=== PATIENT | male | born 1970 | race Caucasian/White ===

== ENCOUNTER → 2018-04-03 | Outpatient (CLI) | payer OTHER ==
[2018-04-03 08:00] LABS: HGB 14.9 gm/dL (13.0-17.5); MCH 30.4 pg (25.0-35.0); MCHC 32.3 g/dL (31.0-37.0); MCV 93.9 fL (80.0-100.0); Mean Platelet Volume 6.8; Platelet Count 239 k/uL (150-450); RDW 13.1 % (11.5-15.5); WBC 6.4 k/uL (3.8-10.6)
[2018-04-03 10:12] LABS: Erythrocyte Sedimentation Rate 7 mm/hr (0-15)
--- NOTE | 2018-04-03 11:47 | NM ---
EXAMINATION TYPE: NM bone 3 phase DATE OF EXAM: 04/03/2018 COMPARISON: NONE HISTORY: Pain Triple phase bone scintigraphy was performed following the injection of 25.4 mCi Tc 99m MDP. Immedia te images and 3.5 hours post injection images acquired. FINDINGS: There is symmetric flow bilaterally. There is increased soft tissue uptake along the greater trochant er on the blood pool images. Delayed images demonstrate abnormal uptake near the tip of the distal margin of the prostheses and al ever the acetabulum. IMPRESSION: Abnormal uptake involving the right hip prostheses be associated with loosening or infection correlat ion with tagged WBC study recommended.
== END | disposition home or self-care (01) ==
LOC: RADNMMAIN 07:18
PROVIDERS: ATTEND Orthopaedic Surgery
DX: R93.7 Abnormal findings on diagnostic imaging of other parts of musculoskeletal system (principal); Z96.641 Presence of right artificial hip joint
CPT/HCPCS: 85652; 85027; 86141; 78315; 36415; A9503

== ENCOUNTER → 2018-07-03 | Outpatient (CLI) | payer OTHER ==
--- NOTE | 2018-07-03 09:19 | MR ---
EXAMINATION TYPE: MR lumbar spine wo con DATE OF EXAM: 07/03/2018 COMPARISON: None HISTORY: 47-year-old male Radiculopathy, lumbar region, numbness in legs TECHNIQUE: Multiplanar, multisequence images of the lumbar spine were acquired. Findings: Prominent metal hardware artifact suggesting underlying right hip total arthroplasty. Vertebral body heights are preserved and alignment is maintained. Mild heterogeneous marrow signal without suspicious bone marrow replacement. Scattered potential fatt y endplate changes are present anteriorly at L1-L2, L2-L3, L3-L4. Mild multilevel degenerative disc disease with variable mild disc desiccation and mild disc interspac e narrowing. There is a left paracentral and intraforaminal protrusion at L5-S1 with annular fissure. No large foc al disc herniation is seen. Facet arthropathy lower lumbar spine. Conus medullaris is normal. From T12 through L4 levels, no spinal canal or neuroforaminal stenosis. At L4-L5, there is facet arthropathy without significant canal or foraminal stenosis. At L5-S1, there is facet arthropathy with right paracentral/intraforaminal protrusion and annular fis sure this abuts the traversing right S1 nerve root, axial image 2 and sagittal image 9. No significan t neuroforaminal stenosis. No prevertebral or paravertebral soft tissue abnormality. IMPRESSION: 1. Mild multilevel degenerative disc disease. Some scattered associated Modic type II fatty endplate change. Additional facet arthropathy lower lumbar spine. 2. There is a small right paracentral/intraforaminal disc protrusion at L5-S1 with annular fissure. T his contacts the traversing right S1 nerve root. 3. No significant spinal canal or neuroforaminal stenosis.
== END | disposition home or self-care (01) ==
LOC: RADMRIMAIN 07:30
DX: M51.27 Other intervertebral disc displacement, lumbosacral region (principal); M51.36 Other intervertebral disc degeneration, lumbar region; M46.96 Unspecified inflammatory spondylopathy, lumbar region
CPT/HCPCS: 72148

== ENCOUNTER 2019-01-13 15:07 | Inpatient (IN) | payer OTHER ==
[2019-01-13] MEDS ORDERED: SODIUM CHLORIDE 0.9% 500 ML 500 ML IV STA (16:13)
--- NOTE | 2019-01-13 16:15 | ED ---
SOB HPI - General Source: patient, RN notes reviewed Mode of arrival: wheelchair Limitations: no limitations <Negro Woody - Last Filed: 01/13/19 16:53> <Pranay Verde - Last Filed: 01/13/19 18:19> - General Chief Complaint: Shortness of Breath Stated Complaint: SOB, cough Time Seen by Provider: 01/13/19 16:08 - History of Present Illness Initial Comments: This a 48-year-old male presents emergency Department with chief complaint of cough, shortness of breath. Patient states approximately one month but is diagnosed with pneumoniaand advised him steroids and breathing treatments. Patient states he followed up because he started increase in symptoms after coming off antibiotics. Patient states that he had an x-ray with PCP who told him it was worsening. He was sent emergency department at this time. Patient states he is a former smoker quit smoking approximately 3 years ago. He states he has right-sided chest pain which is pleuritic in nature. He states initially wasn't symptoms started he had a productive cough with some bloody sputum this is which he was reported pneumonia. Patient denies any current nausea, vomiting, diarrhea, constipation, fever, chills, night sweats. Patient states he has no left-sided chest pain. Patient did not take any current medications. (Negro Woody) - Related Data Home Medications Medication Instructions Recorded Confirmed Albuterol Sulfate [Proventil Hfa] 2 puff INHALATION QID 01/13/19 01/13/19 Simvastatin [Zocor] 20 mg PO DAILY 01/13/19 01/13/19 Allergies Allergy/AdvReac Type Severity Reaction Status Date / Time acetaminophen Allergy Vomiting Verified 01/13/19 16:48 [From Tylenol-Codeine #3] adhesive tape Allergy Rash/Hives Verified 01/13/19 16:48 codeine Allergy Vomiting Verified 01/13/19 16:48 [From Tylenol-Codeine #3] meperidine [From Demerol] Allergy Vomiting Verified 01/13/19 16:48 Review of Systems ROS Other: All systems not noted in ROS Statement are negative. <Negro Woody - Last Filed: 01/13/19 16:53> ROS Other: All systems not noted in ROS Statement are negative. <Pranay Verde - Last Filed: 01/13/19 18:19> ROS Statement: Those systems with pertinent positive or pertinent negative responses have been documented in the HPI. Past Medical History Past Medical History: Hyperlipidemia, Pneumonia Additional Past Medical History / Comment(s): right hip pain History of Any Multi-Drug Resistant Organisms: None Reported Past Surgical History: Joint Replacement Additional Past Surgical History / Comment(s): x2 right hip replacement, right hand surgery Past Psychological History: No Psychological Hx Reported Smoking Status: Former smoker Past Alcohol Use History: Daily Past Drug Use History: None Reported <Negro Woody - Last Filed: 01/13/19 16:53> General Exam Limitations: no limitations General appearance: alert, in no apparent distress Head exam: Present: atraumatic, normocephalic, normal inspection Eye exam: Present: normal appearance, PERRL, EOMI. Absent: scleral icterus, conjunctival injection, periorbital swelling ENT exam: Present: normal exam, normal oropharynx, mucous membranes moist, TM's normal bilaterally Neck exam: Present: normal inspection. Absent: tenderness, meningismus, lymphadenopathy Respiratory exam: Present: normal lung sounds bilaterally. Absent: respiratory distress, wheezes, rales, rhonchi, stridor Cardiovascular Exam: Present: regular rate, normal rhythm, normal heart sounds. Absent: systolic murmur, diastolic murmur, rubs, gallop, clicks GI/Abdominal exam: Present: soft, normal bowel sounds. Absent: distended, tend erness, guarding, rebound, rigid Back exam: Absent: CVA tenderness (R), CVA tenderness (L) Skin exam: Present: warm, dry, intact, normal color. Absent: rash <Negro Woody - Last Filed: 01/13/19 16:53> General appearance: alert, in no apparent distress Head exam: Present: atraumatic, normocephalic, normal inspection Eye exam: Present: normal appearance, PERRL, EOMI. Absent: scleral icterus, conjunctival injection, periorbital swelling ENT exam: Present: normal exam, mucous membranes moist Neck exam: Present: normal inspection. Absent: tenderness, meningismus, lymphadenopathy Respiratory exam: Present: normal lung sounds bilaterally. Absent: respiratory distress, wheezes, rales, rhonchi, stridor Cardiovascular Exam: Present: regular rate, normal rhythm, normal heart sounds. Absent: systolic murmur, diastolic murmur, rubs, gallop, clicks GI/Abdominal exam: Present: soft, normal bowel sounds. Absent: distended, tenderness, guarding, rebound, rigid Extremities exam: Present: normal inspection, full ROM, normal capillary refill. Absent: tenderness, pedal edema, joint swelling, calf tenderness Back exam: Present: normal inspection Neurological exam: Present: alert, oriented X3, CN II-XII intact Psychiatric exam: Present: normal affect, normal mood Skin exam: Present: warm, dry, intact, normal color. Absent: rash <Pranay Verde - Last Filed: 01/13/19 18:19> Course Vital Signs 01/13/19 01/13/19 15:18 16:51 Temperature 98.0 F Pulse Rate 95 73 Respiratory 18 18 Rate Blood Pressure 125/83 116/77 O2 Sat by Pulse 95 98 Oximetry Medical Decision Making - Lab Data Result diagrams: 01/13/19 16:09 01/13/19 16:09 <Negro Woody - Last Filed: 01/13/19 16:53> - Lab Data Result diagrams: 01/13/19 16:09 01/13/19 16:09 - Radiology Data Radiology results: report reviewed (CT angio chest shows lung mass w atelescatis ), image reviewed <Pranay Verde - Last Filed: 01/13/19 18:19> - Medical Decision Making 48 male to be admitted for failure of outpatient pneumonia, patient to be admitted for abx and monitoring of cardiopulmonary support (Pranay Verde) - Lab Data Lab Results 01/13/19 01/13/19 01/13/19 Range/Units 16:09 16:09 16:09 WBC 6.8 (3.8-10.6) k/uL RBC 4.92 (4.30-5.90) m/uL Hgb 15.3 (13.0-17.5) gm/dL Hct 45.8 (39.0-53.0) % MCV 93.0 (80.0-100.0) fL MCH 31.0 (25.0-35.0) pg MCHC 33.3 (31.0-37.0) g/dL RDW 12.4 (11.5-15.5) % Plt Count 232 (150-450) k/uL Neutrophils % 66 % Lymphocytes % 20 % Monocytes % 6 % Eosinophils % 6 % Basophils % 1 % Neutrophils # 4.5 (1.3-7.7) k/uL Lymphocytes # 1.4 (1.0-4.8) k/uL Monocytes # 0.4 (0-1.0) k/uL Eosinophils # 0.4 (0-0.7) k/uL Basophils # 0.0 (0-0.2) k/uL PT 9.3 (9.0-12.0) sec INR 0.8 (<1.2) APTT 24.3 (22.0-30.0) sec D-Dimer 1.75 H (<0.60) mg/L FEU Sodium 141 (137-145) mmol/L Potassium 4.0 (3.5-5.1) mmol/L Chloride 106 (98-107) mmol/L Carbon Dioxide 26 (22-30) mmol/L Anion Gap 9 mmol/L BUN 11 (9-20) mg/dL Creatinine 0.85 (0.66-1.25) mg/dL Est GFR (CKD-EPI)AfAm >90 (>60 ml/min/1.73 sqM) Est GFR (CKD-EPI)NonAf >90 (>60 ml/min/1.73 sqM) Glucose 94 (74-99) mg/dL Plasma Lactic Acid Nehemias (0.7-2.0) mmol/L Calcium 9.8 (8.4-10.2) mg/dL Total Bilirubin 0.5 (0.2-1.3) mg/dL AST 21 (17-59) U/L ALT 37 (21-72) U/L Alkaline Phosphatase 79 (38-126) U/L Troponin I (0.000-0.034) ng/mL NT-Pro-B Natriuret Pep pg/mL Total Protein 6.9 (6.3-8.2) g/dL Albumin 4.2 (3.5-5.0) g/dL 01/13/19 01/13/19 01/13/19 Range/Units 16:09 16:09 16:09 WBC (3.8-10.6) k/uL RBC (4.30-5.90) m/uL Hgb (13.0-17.5) gm/dL Hct (39.0-53.0) % MCV (80.0-100.0) fL MCH (25.0-35.0) pg MCHC (31.0-37.0) g/dL RDW (11.5-15.5) % Plt Count (150-450) k/uL Neutrophils % % Lymphocytes % % Monocytes % % Eosinophils % % Basophils % % Neutrophils # (1.3-7.7) k/uL Lymphocytes # (1.0-4.8) k/uL Monocytes # (0-1.0) k/uL Eosinophils # (0-0.7) k/uL Basophils # (0-0.2) k/uL PT (9.0-12.0) sec INR (<1.2) APTT (22.0-30.0) sec D-Dimer (<0.60) mg/L FEU Sodium (137-145) mmol/L Potassium (3.5-5.1) mmol/L Chloride (98-107) mmol/L Carbon Dioxide (22-30) mmol/L Anion Gap mmol/L BUN (9-20) mg/dL Creatinine (0.66-1.25) mg/dL Est GFR (CKD-EPI)AfAm (>60 ml/min/1.73 sqM) Est GFR (CKD-EPI)NonAf (>60 ml/min/1.73 sqM) Glucose (74-99) mg/dL Plasma Lactic Acid Nehemias 0.8 (0.7-2.0) mmol/L Calcium (8.4-10.2) mg/dL Total Bilirubin (0.2-1.3) mg/dL AST (17-59) U/L ALT (21-72) U/L Alkaline Phosphatase (38-126) U/L Troponin I <0.012 (0.000-0.034) ng/mL NT-Pro-B Natriuret Pep 30 pg/mL Total Protein (6.3-8.2) g/dL Albumin (3.5-5.0) g/dL - EKG Data EKG Comments: EKG performed at 16:02 normal sinus rhythm rate of 66 GA 136 QRS 96 QT status QTC 398/417 (Negro Woody) Disposition Time of Disposition: 16:53 <Negro Woody - Last Filed: 01/13/19 16:53> Is patient prescribed a controlled substance at d/c from ED?: No <Pranay Verde - Last Filed: 01/13/19 18:19> Clinical Impression: Pneumonia, Failure of outpatient treatment, Lung mass Disposition: ADMITTED IP TO THIS HOSP Condition: Fair Referrals: Juan José Reece DO [Primary Care Provider] - 1-2 days
[2019-01-13 16:27] LABS: Basophils % (A) 1 %; Eosinophils # (A) 0.4 k/uL (0-0.7); Eosinophils % (A) 6 %; HCT 45.8 % (39.0-53.0); HGB 15.3 gm/dL (13.0-17.5); Lymphocytes # (A) 1.4 k/uL (1.0-4.8); Lymphocytes % (A) 20 %; MCHC 33.3 g/dL (31.0-37.0); Mean Platelet Volume 6.6; Monocytes # (A) 0.4 k/uL (0-1.0); Monocytes % (A) 6 %; Neutrophils # (A) 4.5 k/uL (1.3-7.7); Neutrophils % (A) 66 %; Platelet Count 232 k/uL (150-450); RBC 4.92 m/uL (4.30-5.90); RDW 12.4 % (11.5-15.5); WBC 6.8 k/uL (3.8-10.6)
[2019-01-13 16:36] LABS: ALT 37 U/L (21-72); AST 21 U/L (17-59); Albumin 4.2 g/dL (3.5-5.0); Alkaline Phosphatase 79 U/L (38-126); Anion Gap 9 mmol/L; Blood Urea Nitrogen 11 mg/dL (9-20); Calcium 9.8 mg/dL (8.4-10.2); Carbon Dioxide 26 mmol/L (22-30); Chloride 106 mmol/L (98-107); Glucose 94 mg/dL (74-99); Sodium 141 mmol/L (137-145); Total Bilirubin 0.5 mg/dL (0.2-1.3); Total Protein 6.9 g/dL (6.3-8.2)
[2019-01-13] MEDS ORDERED: LEVOFLOXACIN 750MG-D5W PMX 750 MG in DEXTROSE/WATER 1 150ML.BAG IVPB STA (16:53)
[2019-01-13] MEDS ORDERED: PNEUMONIA PROTOCOL UTILIZED 1 EACH MISC PO PRN (16:53)
[2019-01-13 16:56] LABS: INR 0.8 (<1.2); Partial Thromboplastin Time 24.3 sec (22.0-30.0); Prothrombin Time 9.3 sec (9.0-12.0)
--- NOTE | 2019-01-13 16:59 | XR ---
EXAMINATION TYPE: XR chest 2V DATE OF EXAM: 01/13/2019 COMPARISON: None HISTORY: Cough short of breath TECHNIQUE: Frontal and lateral views of the chest are obtained. FINDINGS: There is some patchy atelectasis at the right lung base. There is minimal subsegmental ate lectasis left lower lobe. There is no heart failure. Heart size is normal. IMPRESSION: Right lower lobe patchy atelectasis. Normal heart.
[2019-01-13 17:13] LABS: D-Dimer 1.75 mg/L FEU (<0.60)
--- NOTE | 2019-01-13 18:06 | CT ---
EXAMINATION TYPE: CT angio chest DATE OF EXAM: 01/13/2019 5:39 PM COMPARISON: None HISTORY: difficulty breathing CT DLP: 300.4 mGycm Automated exposure control for dose reduction was used. CONTRAST: CTA scan of the thorax is performed with IV Contrast, patient injected with 100 mL of Isovue 300, pul monary embolism protocol. There are 3-D post processed images.. FINDINGS: Heart size is normal. There is linear moderate atelectasis in the lateral right lower lobe. There is masslike density at the right pulmonary hilum encasing the right mainstem bronchus and right lower lobe bronchus. This measures 7 x 3.5 cm. Thoracic aorta shows no aneurysm or dissection. There is normal contrast opacification of the pulmona ry arteries. I see no filling defect. There is no mediastinal adenopathy. The bony thorax is intact. IMPRESSION: NO EVIDENCE OF PULMONARY EMBOLISM. LARGE MASS INFERIOR AND POSTERIOR TO THE RIGHT PULMONARY HILUM CON SISTENT WITH THE TUMOR. THERE IS EXTENSIVE ATELECTASIS RIGHT LOWER LOBE.
[2019-01-13 19:54] VITALS: BMI 28.5
[2019-01-13] MEDS ORDERED: LORazepam 2 MG/ML INJ IV PRN ×3 (20:39)
[2019-01-13] MEDS ORDERED: THIAMINE 100 MG/ML 2 ML VIAL IM STA (20:39)
[2019-01-13] MEDS: ATORVASTATIN 10 MG TAB PO SCH (20:53)
[2019-01-13] MEDS: THIAMINE 100 MG TAB PO SCH (20:53)
[2019-01-13] MEDS: HEPARIN SODIUM,PORCINE 5,000 UNIT/ML 1 ML VIAL SQ SCH (20:54)
[2019-01-13] MEDS: IPRATROPIUM-ALBUTEROL 3 ML NEB INHALATION SCH (20:57)
[2019-01-13] MEDS: ALPRAZolam 0.25 MG TAB PO PRN (20:58)
[2019-01-13] MEDS: PIPERACILLIN-TAZOBACTAM 3.375 GM in SODIUM CHLORIDE 0.9% 100 ML IVPB SCH (23:40)
[2019-01-13] MEDS: HYDROcodone/APAP 5-325MG 1 EACH TAB PO PRN (23:43)
--- NOTE | 2019-01-14 03:35 | HP ---
HISTORY AND PHYSICAL CHIEF COMPLAINT: Shortness of breath and cough. HISTORY OF PRESENT ILLNESS: This 48-year-old gentleman with a past medical history of multiple medical issues including hypertension, hyperlipidemia, history of right hip pain, DJD, history of PTSD, history of Botox in 1999 with broken right being followed Dr. Juan José Reece in the outpatient setting was having problems pneumonia for the past one month. The patient has on and off shortness of breath and cough. The patient had received antibiotics. The chest x-ray was found to be worsening and the patient came to [facility] and was admitted for further evaluation. Patient also complaining of right sided chest pain. The patient also reports a weight loss. After admission, chest x-ray showed some right-sided opacities and CT scan of the chest was done. There was no evidence of pulmonary embolism, but large mass interior and posterior to the right pulmonary hilum consistent with possibly lung tumor with extensive atelectasis of the right lower lobe was also noted. The patient admitted for further evaluation and treatment. There is no history of fever, rigors. No history of headache, loss of consciousness or seizures. PAST MEDICAL HISTORY: Hyperlipidemia, recurrent pneumonia, right hip pain, history of PTSD. MEDICATIONS: Prior to admission home medications include: 1. Simvastatin 20 mg daily. 2. Albuterol q.i.d. ALLERGIES: TYLENOL FROM TYLENOL #3, ADHESIVE TAPE, CODEINE AND DEMEROL. FAMILY HISTORY: History of lung cancer in father, who was admitted here and history of lung cancer and brain cancer in the patient's father's brother. The patient and his father live in the same house. The patient used to work in a factory previously. SOCIAL HISTORY: Previous history of smoking. Patient quit about a few years ago. Smokes marijuana. Occasional alcohol intake. REVIEW OF SYSTEMS: ENT: No diminished vision. No diminished hearing. CARDIOVASCULAR: As mentioned earlier. RESPIRATORY: As mentioned earlier. GI no nausea or vomiting. no dysuria. Nervous System: Numbness and weakness. ALLERGY/IMMUNOLOGY: No asthma or hayfever. MUSCULOSKELETAL: As mentioned earlier. HEMATOLOGY/ONCOLOGY: As mentioned earlier. ENDOCRINE: No history of diabetes or hypothyroidism. CONSTITUTIONAL: As mentioned earlier. Dermatology: Negative. Rheumatology: Negative. Psychiatry: As mentioned earlier. PHYSICAL EXAMINATION: Alert and oriented times three. Pulse is 92, blood pressure 111/81, respiration 18, temperature 97.9, pulse ox 97% on room air. HEENT: Conjunctivae normal. Oral mucosa moist. NECK: No jugular venous distention. No carotid bruit. No lymph node enlargement. CARDIOVASCULAR: S1, S2 muffled. RESPIRATORY: Breath sounds diminished in the the bases. A few scattered rhonchi and crackles. Breath sounds are diminished in the bases. Both bases. ABDOMEN: Soft, nontender. No mass palpable. LEGS: No edema. No swelling. NERVOUS SYSTEM: Higher functions as mentioned earlier. Moves all 4 limbs. No focal motor or sensory deficits. Lymphatics: No lymph nodes palpable in the neck, axillae or groin. SKIN: No ulcer, rash or bleeding. JOINTS: No active arthropathy. LABS: CBC within normal limits and D-dimer is 1.7. CMP within normal limits. ASSESSMENT: 1. Possible right-sided lung cancer with postobstructive pneumonia and atelectasis. 2. Failure of outpatient treatment for pneumonia. 3. Possibly gram-negative postobstructive pneumonia. 4. Hyperlipidemia. 5. History of right hip pain, degenerative joint disease. History of PTSD. 1. History of nicotine dependence. 2. History of THC, history of EtOH. RECOMMENDATIONS AND DISCUSSION: This 48-year-old gentleman who presented with multiple medical problems at this time we will monitor the patient closely, continue the current medications, management and symptomatic treatment. Otherwise at this time I recommend broad-spectrum IV antibiotics. I would also recommend pulmonary consultation with Dr. Ortega for possible bronchoscopy and biopsy. DVT prophylaxis. Pain medications, symptomatic treatment. Resume the home medications. Guarded prognosis because of multiple complex medical issues. Further recommendations to follow. A copy of dictation being forwarded to Dr. Juan José Reece, who is the primary care physician. MMODL / IJN: [id number] / [facility]OS[facility]ITALMichell
[2019-01-14] MEDS: HEPARIN SODIUM,PORCINE 5,000 UNIT/ML 1 ML VIAL SQ SCH ×2 (07:49→20:37)
[2019-01-14] MEDS: ATORVASTATIN 10 MG TAB PO SCH (07:49)
[2019-01-14] MEDS: PIPERACILLIN-TAZOBACTAM 3.375 GM in SODIUM CHLORIDE 0.9% 100 ML IVPB SCH ×3 (07:49→23:40)
[2019-01-14] MEDS: THIAMINE 100 MG TAB PO SCH ×2 (07:49→16:04)
[2019-01-14] MEDS: HYDROcodone/APAP 5-325MG 1 EACH TAB PO PRN ×2 (07:49→14:02)
[2019-01-14] MEDS: PANTOPRAZOLE 40 MG TABLET PO SCH (07:49)
[2019-01-14] MEDS: IPRATROPIUM-ALBUTEROL 3 ML NEB INHALATION SCH ×5 (08:08→19:58)
--- NOTE | 2019-01-14 09:05 | XR ---
EXAMINATION TYPE: XR chest 2V DATE OF EXAM: 01/14/2019 COMPARISON: 01/13/2019 TECHNIQUE: PA and lateral views submitted. HISTORY: Cough, abnormal x-ray FINDINGS: Small right pleural effusion with basilar infiltrate is stable. No pneumothorax. No interstitial isauro a. Heart size normal. IMPRESSION: 1. Stable right-sided infiltrate and small effusion.
[2019-01-14 09:07] LABS: Basophils # (A) 0.1 k/uL (0-0.2); Basophils % (A) 1 %; Eosinophils # (A) 0.3 k/uL (0-0.7); Eosinophils % (A) 4 %; HCT 45.5 % (39.0-53.0); HGB 15.1 gm/dL (13.0-17.5); Lymphocytes # (A) 1.1 k/uL (1.0-4.8); Lymphocytes % (A) 15 %; MCHC 33.1 g/dL (31.0-37.0); MCV 93.9 fL (80.0-100.0); Mean Platelet Volume 6.5; Monocytes # (A) 0.4 k/uL (0-1.0); Monocytes % (A) 5 %; Neutrophils # (A) 5.5 k/uL (1.3-7.7); Neutrophils % (A) 74 %; Platelet Count 229 k/uL (150-450); RBC 4.85 m/uL (4.30-5.90); RDW 12.6 % (11.5-15.5); WBC 7.4 k/uL (3.8-10.6)
[2019-01-14 09:22] LABS: Anion Gap 8 mmol/L; Blood Urea Nitrogen 10 mg/dL (9-20); Calcium 9.5 mg/dL (8.4-10.2); Carbon Dioxide 26 mmol/L (22-30); Chloride 107 mmol/L (98-107); Glucose 133 mg/dL (74-99); Potassium 4.1 mmol/L (3.5-5.1); Sodium 141 mmol/L (137-145)
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
[2019-01-14] MEDS: LEVOFLOXACIN 750MG-D5W PMX 750 MG in DEXTROSE/WATER 1 150ML.BAG IVPB SCH (16:04)
[2019-01-14] MEDS: HYDROmorphone 0.5 MG/0.5 ML SYRINGE IVP PRN ×2 (16:23→20:43)
[2019-01-14] MEDS: methylPREDNISolone SOD SUCCI 40 MG/ML 1 ML VIAL IV SCH ×2 (17:46→23:41)
--- NOTE | 2019-01-14 23:04 | PN ---
PROGRESS NOTE DATE OF SERVICE: 01/14/2019 DATE OF SERVICE: This 48-year-old gentleman who was admitted with shortness of breath, cough, right- sided lung cancer with post obstructive pneumonia and atelectasis. Dr. Ortega is following the patient closely. CT scan was reviewed. The patient is complaining of chest pain at this time. Dr. Ortega is recommending a bronchoscopy and biopsy at this time. The patient is being closely monitored. Please note the patient also has family history of lung cancer. PAST MEDICAL HISTORY: Reviewed. REVIEW OF SYSTEMS: CARDIOVASCULAR: No angina. RESPIRATORY: As mentioned earlier. GI: No nausea. : As mentioned earlier. CURRENT MEDICATIONS: 1. [place] 5 mg every 6 hours p.r.n. 2. DuoNeb q.i.d. and p.r.n. 3. Xanax 0.5 t.i.d. 4. Lipitor 10 mg. 5. Heparin 5000 subcu b.i.d. 6. Dilaudid 0.5 mg every 4 hours p.r.n. 7. Levaquin. 8. Ativan. 9. Solu-Medrol 40 IV every 6 hours. 10.Protonix. 11.Zosyn 3.375 IV every 8. PHYSICAL EXAMINATION: Alert, oriented x3. Pulse is 89,blood pressure 120/66, respirations 16, temperature 97.9, pulse ox 94% on room air. HEENT: Conjunctivae normal. Oral mucosa moist. NECK: No jugular venous distention. No lymph node enlargement. CARDIOVASCULAR: S1 and S2 muffled. LUNGS: Breath sounds diminished at the bases. Few scattered rhonchi and expiratory wheezing and crackles. ABDOMEN: Soft, nontender. LEGS: No edema, no swelling. NERVOUS SYSTEM: No focal deficits. LABS: At this time show WBC 7.2, hemoglobin 15.1, glucose 133. ASSESSMENT: 1. Acute right-sided post obstructive pneumonia with atelectasis with possible right- sided lung cancer. 2. Failure of outpatient treatment for pneumonia. 3. Gram-negative or possibly pneumonia. 4. Hyperlipidemia. 5. History of right hip pain and DJD. 6. Right-sided chest pain. 7. History of PTSD. 8. History of nicotine dependence. 9. History of THC. 10.History of ETOH. RECOMMENDATIONS: Continue current medications and symptomatic treatment. At this time we will add Dilaudid p.r.n. basis. Otherwise, continue the antibiotics and bronchodilators. Closely follow with Dr. Ortega. Guarded prognosis. Further recommendations to follow. MMODL / IJN: [id number] /
[2019-01-15] MEDS: methylPREDNISolone SOD SUCCI 40 MG/ML 1 ML VIAL IV SCH ×4 (05:48→23:45)
[2019-01-15] MEDS: IPRATROPIUM-ALBUTEROL 3 ML NEB INHALATION SCH ×4 (07:13→21:10)
[2019-01-15] MEDS: ATORVASTATIN 10 MG TAB PO SCH (07:58)
[2019-01-15] MEDS: PIPERACILLIN-TAZOBACTAM 3.375 GM in SODIUM CHLORIDE 0.9% 100 ML IVPB SCH ×3 (07:58→23:46)
[2019-01-15] MEDS: HEPARIN SODIUM,PORCINE 5,000 UNIT/ML 1 ML VIAL SQ SCH ×2 (07:58→20:10)
[2019-01-15] MEDS: THIAMINE 100 MG TAB PO SCH ×2 (07:58→16:45)
[2019-01-15] MEDS: PANTOPRAZOLE 40 MG TABLET PO SCH (07:58)
[2019-01-15] MEDS: HYDROmorphone 0.5 MG/0.5 ML SYRINGE IVP PRN ×4 (07:59→20:10)
[2019-01-15 11:06] LABS: Basophils % (A) 0 %; Eosinophils % (A) 0 %; HCT 42.9 % (39.0-53.0); HGB 14.1 gm/dL (13.0-17.5); Lymphocytes # (A) 0.3 k/uL (1.0-4.8); Lymphocytes % (A) 3 %; MCH 30.7 pg (25.0-35.0); MCHC 32.9 g/dL (31.0-37.0); MCV 93.4 fL (80.0-100.0); Mean Platelet Volume 7.1; Monocytes # (A) 0.2 k/uL (0-1.0); Monocytes % (A) 2 %; Neutrophils # (A) 9.2 k/uL (1.3-7.7); Neutrophils % (A) 95 %; Platelet Count 246 k/uL (150-450); RBC 4.59 m/uL (4.30-5.90); RDW 13.5 % (11.5-15.5); WBC 9.7 k/uL (3.8-10.6)
[2019-01-15 12:00] LABS: Anion Gap 6 mmol/L; Blood Urea Nitrogen 11 mg/dL (9-20); Calcium 9.9 mg/dL (8.4-10.2); Carbon Dioxide 25 mmol/L (22-30); Chloride 109 mmol/L (98-107); Glucose 153 mg/dL (74-99); Potassium 4.2 mmol/L (3.5-5.1); Sodium 140 mmol/L (137-145)
--- NOTE | 2019-01-15 12:08 | P.PN ---
Subjective Progress Note Date: 01/15/19 Principal diagnosis: Right-sided chest pain secondary to a large 7 x 3.5 cm right hilar mass encroaching on the right mainstem bronchus and right lower lobe bronchus and extensive atelectasis of the right lower lobe. This is a very pleasant 48-year-old gentleman who follows with Dr. Coto as his primary care physician. He has a history of hyperlipidemia and daily alcohol use. He also has a history of 30 year pack per day smoking history however quit 2 years ago. He does smoke occasional marijuana. Approximate one month ago he started developing increasing shortness of breath cough and congestion with some hemoptysis. He was seen by his PCP treated with antibiotics and steroids and felt he did improve somewhat. He was seen there again yesterday with recurring symptoms. He also had right-sided chest pain anteriorly that went through to his back posteriorly. Chest x-ray showed area of right lower lobe atelectasis. CT angiogram ruled out pulmonary embolism h owever there is a large 7 x 3.5 cm mass anterior and posterior to the right pulmonary hilum consistent with tumor. There is extensive atelectasis of the right lower lobe. He is seen today in consultation on the regular medical floor. Awake and alert in no acute distress. He is maintaining good O2 saturations in the 90s on room air. Afebrile. Hemodynamically stable. Still with some right-sided chest discomfort. White count 7.4. Hemoglobin 15.1. Creatinine 0.77. Troponin negative. ProBNP 30. He's been initiated on DuoNeb inhalations, Zosyn and Levaquin. He was also placed on the CIWA protocol. Of note, the patient's father has a history of squamous cell carcinoma of the right upper lung diagnosed in July 2017 with brain metastasis status post chemoradiation. He is currently hospitalized with right chest empyema. The patient is seen today in 01/15/2019 in follow-up on the regular medical floor. He is currently awake and alert in no acute distress. His right-sided chest discomfort has subsided. No worsening shortness of breath, cough or congestion. Maintaining O2 saturations in the 90s on room air. He's been afebrile. Hemodynamically stable. Blood culture reveals no growth. White count 9.7. Hemoglobin 14.1. Creatinine 0.65. He remains on Zosyn and Levaquin along with bronchodilators and IV Solu-Medrol. Plan is for bronchoscopy with biopsy today. Objective - Vital Signs Vital signs: Vital Signs Temp 98.6 F 01/15/19 05:51 Pulse 92 01/15/19 10:49 Resp 18 01/15/19 05:51 BP 106/68 01/15/19 05:51 Pulse Ox 94 L 01/15/19 05:51 Intake & Output 01/14/19 01/15/19 01/15/19 18:59 06:59 18:59 Other: # Voids 3 2 # Bowel Movements 1 - Exam GENERAL EXAM: Alert, active, comfortable in no apparent distress. On room air. HEAD: Normocephalic. EYES: Normal reaction of pupils, equal size. NOSE: Clear with pink turbinates. THROAT: No erythema or exudates. NECK: No masses, no JVD. CHEST: No chest wall deformity. LUNGS: Equal air entry with few scattered rhonchi in the right lung. CVS: S1 and S2 normal with no audible murmur, regular rhythm. ABDOMEN: No hepatosplenomegaly, normal bowel sounds, no guarding or rigidity. SPINE: No scoliosis or deformity SKIN: No rashes CENTRAL NERVOUS SYSTEM: No focal deficits, tone is normal in all 4 extremities. EXTREMITIES: There is no peripheral edema. No clubbing, no cyanosis. Peripheral pulses are intact. - Labs CBC & Chem 7: 01/15/19 10:25 01/15/19 10:25 Labs: Abnormal Lab Results - Last 24 Hours (Table) 01/15/19 01/15/19 Range/Units 10:25 10:25 Neutrophils # 9.2 H (1.3-7.7) k/uL Lymphocytes # 0.3 L (1.0-4.8) k/uL Chloride 109 H (98-107) mmol/L Creatinine 0.65 L (0.66-1.25) mg/dL Glucose 153 H (74-99) mg/dL Microbiology - Last 24 Hours (Table) 01/13/19 16:09 Blood Culture - Preliminary Blood No Growth after 24 hours Assessment and Plan Assessment: Impression: #1 Right-sided chest pain radiating through to the back with cough ,congestion, hemoptysis secondary to a large 7 x 3.5 cm right hilar mass encroaching on the right mainstem bronchus and right lower lobe bronchus and extensive atelectasis of the right lower lobe. Bronchoscopy with biopsy today 01/15/2019. #2 History of chronic tobacco dependence. #3 History of marijuana use. #4 History of daily alcohol use. #5 Hyperlipidemia. #6 Family history of squamous cell carcinoma of the right lung with brain metastasis in his father status post chemoradiation 2017, currently admitted with a right lung empyema. Plan: The patient was seen and evaluated by Dr. Ortega. His pain has improved with steroids. The plan is for bronchoscopy with biopsies today. Continue current treatment plan. [facility] protocol for potential alcohol withdrawal. We will continue to follow and make further recommendations based on his clinical status. I, the cosigning physician, performed a history & physical examination of the patient. Lungs sounds with scattered rhonchi in the right lung. Maintaining good O2 saturations in the 90s on room air. I discussed the assessment and plan of care with my nurse practitioner, Melia Juarez. I attest to the above note as dictated by her.
[2019-01-15] MEDS ORDERED: PROPOFOL 10 MG/ML 20 ML VIAL IV ONE (13:16)
[2019-01-15] MEDS ORDERED: MIDAZOLAM 2 MG/2 ML VIAL ONE (13:16)
[2019-01-15] MEDS ORDERED: LIDOCAINE 1% INJ 10MG/ML (20 ML MDV) ONE (13:16)
[2019-01-15] MEDS ORDERED: LACTATED RINGERS 1,000 ML IV ONE (13:25)
[2019-01-15] MEDS ORDERED: LIDOCAINE 2% INJ 20 MG/ML INTRATRACH ONE (13:46)
[2019-01-15] MEDS: ALPRAZolam 0.25 MG TAB PO PRN (14:39)
--- NOTE | 2019-01-15 14:42 | XR ---
EXAMINATION TYPE: XR chest 1V portable DATE OF EXAM: 01/15/2019 COMPARISON: 01/14/2019 HISTORY: Chest pain TECHNIQUE: Single frontal view of the chest is obtained. FINDINGS: Right lower lobe infiltrate and/or atelectasis has progressed since prior study. Continued follow-up until resolution advised. The cardiac silhouette size is within normal limits. The osseous structures are intact. IMPRESSION: 1. Right lower lobe infiltrate and/or atelectasis has progressed since prior study. Continued follow -up until resolution advised.
[2019-01-15] MEDS: IOPAMIDOL-300 CONTRAST 30 ML VIAL (ORAL USE) PO PRN ×2 (15:38→16:38)
[2019-01-15] MEDS: LEVOFLOXACIN 750MG-D5W PMX 750 MG in DEXTROSE/WATER 1 150ML.BAG IVPB SCH (15:46)
--- NOTE | 2019-01-15 17:19 | PN ---
PROGRESS NOTE DATE OF SERVICE: 01/15/2019 This 48-year-old gentleman who was admitted with possible lung cancer had a bronchoscopy today. The bronchoscopy was rather difficult. Full report is pending at this time. Postoperatively the patient was found to have tachycardia. Patient is being closely monitored. The patient is also on broad-spectrum IV antibiotics. Specimens have been sent for cytology and biopsy specimen was also sent for biopsies. Past medical history reviewed. REVIEW OF SYSTEMS: CARDIOVASCULAR SYSTEM: No angina, palpitations. RESPIRATORY SYSTEM: As mentioned earlier. GI: As mentioned earlier. : No dysuria or retention. NERVOUS SYSTEM: No numbness, weakness. CURRENT MEDICATIONS: Reviewed. They include: 1. [place] 5 mg q.6 p.r.n. 2. DuoNeb. 3. Xanax. 4. Lipitor. 5. Heparin. 6. Dilaudid. 7. Ativan. 8. Solu-Medrol 40 IV q.6. 9. Protonix. 10.Zosyn 3.375 IV q.8. PHYSICAL EXAMINATION: Patient is alert, oriented x3. Pulse is 127, blood pressure 92/55, respiration 18, temperature 97.6, pulse ox 95% on 2 L. HEENT: Conjunctivae normal. Oral mucosa moist. NECK: No jugular venous distention. No carotid bruit. No lymph node enlargement. CARDIOVASCULAR SYSTEM: S1, S2 muffled. No S3. No S4. RESPIRATORY SYSTEM: Breath sounds diminished at the bases. Scattered rhonchi and crackles are heard, mainly on the right lower part. No bronchial breath sounds. ABDOMEN: Soft, non-tender. LEGS: No edema. No swelling. NERVOUS SYSTEM: No focal deficit. LABS: CBC within normal limits. Sodium 140, potassium 4.2, glucose 153. ASSESSMENT: 1. Acute right-sided post-obstructive pneumonia with atelectasis with possible right- sided lung cancer, status post bronchoscopy. 2. Failure of outpatient treatment for pneumonia. 3. Sinus tachycardia. 4. Gram-negative possible pneumonia. 5. Hyperlipidemia. 6. History of right hip pain and degenerative joint disease. 7. Right-sided chest pain. 8. History of post-traumatic stress disorder. 9. History of nicotine dependence. 10.History of tetrahydrocannabinol. 11.History of ETOH. RECOMMENDATIONS AND DISCUSSION: In this 48-year-old gentleman who presented with multiple medical problems, we will monitor the patient closely, continue the current management, continue with symptomatic treatment. Otherwise at this time I recommend continuing with the current medications. The patient had a CTA done previously which showed no evidence of pulmonary embolism. I would also recommend a 2D echo with Doppler. Continue the rest of the medications. Closely follow with Pulmonary. Continue with the antibiotics, bronchodilators. Patient is keen on going home. However, prognosis is guarded. Further recommendations to follow. MMODL / IJN: [id number] /
--- NOTE | 2019-01-15 18:04 | CT ---
EXAMINATION TYPE: CT brain wo con DATE OF EXAM: 01/15/2019 COMPARISON: None HISTORY: suspected mets, hx of lung ca CT DLP: 1012.7 mGycm. Automated Exposure Control for Dose Reduction was Utilized. TECHNIQUE: CT scan of the head is performed without contrast. FINDINGS: Ventricles of normal size. There is no mass effect nor midline shift. There is no sign of i ntracranial hemorrhage. The calvarium is intact. There is mild mucosal thickening in the ethmoid and sphenoid sinus. There is no evidence of cerebral edema. IMPRESSION: Mild sinusitis. Negative CT scan of the brain. No evidence of metastatic disease. Sensitivity is decr eased with lack of contrast.
--- NOTE | 2019-01-15 18:24 | CT ---
EXAMINATION TYPE: CT abdomen pelvis wo con DATE OF EXAM: 01/15/2019 COMPARISON: None HISTORY: suspected mets, hx of lung ca CT DLP: 527.1 mGycm Automated exposure control for dose reduction was used. TECHNIQUE: Helical acquisition of images was performed from the lung bases through the pelvis. FINDINGS: Exam performed with no IV contrast. There is oral contrast. There is extensive atelectasis right lowe r lobe with right pleural effusion. Liver and spleen appear normal. Bile ducts are not dilated. There is no evidence of pancreatic mass. Gallbladder appears normal. There is no adrenal mass. Stomach appears normal. Kidneys show normal size and contour. There is no h ydronephrosis. There is no retroperitoneal adenopathy. There is no evidence of a bowel obstruction. T here is right hip prosthesis. Bladder distends smoothly. There is no free fluid in the pelvis. There is no inguinal hernia. There is no sign of a pelvic mass. There is no mesenteric edema. There is no free air or ascites. There is no sign of thickened appendix . Lumbar spine and bony pelvis appear intact. I see no bony destructive process. There is some sclero sis in the superior left femoral head consistent with chronic avascular necrosis. IMPRESSION: RIGHT LOWER LOBE INFILTRATE AND ATELECTASIS AND PLEURAL FLUID WITH MASS AT THE INFERIOR RIGHT PULMONA RY HILUM CONSISTENT WITH TUMOR. THERE IS NO EVIDENCE OF METASTATIC DISEASE WITHIN THE ABDOMEN AND PEL VIS. EVIDENCE OF CHRONIC AVASCULAR NECROSIS LEFT FEMORAL HEAD.
--- NOTE | 2019-01-15 20:19 | PCN ---
PROCEDURE NOTE OPERATIVE REPORT: Bronchoscopy and multiple endobronchial biopsies of the medial segment of the right middle lobe and brushings of the medial segment of the right middle lobe, washings, and lavage of the right middle lobe and right lower lobe. PREOPERATIVE DIAGNOSES: Right lower lobe mass with complete obstruction of the medial aspect of the right lower lobe and strongly suspicious for bronchogenic carcinoma. POSTOPERATIVE DIAGNOSES: Right lower lobe mass with complete obstruction of the medial aspect of the right lower lobe and strongly suspicious for bronchogenic carcinoma. ANESTHESIA USED: IV conscious sedation. DESCRIPTION OF PROCEDURE: The patient was prepared according to the bronchoscopy protocol. He was placed in a supine position, O2 was applied, and we monitored his O2 saturation continuously. Blood pressure was intermittently monitored, and O2 saturation was continuously monitored. Cardiac rhythm was continuously monitored. Blood pressure was intermittently monitored. After adequate IV conscious sedation, a few mL of lidocaine were instilled into the right naris, and the bronchoscope was advanced through the right naris down to the area of the vocal cords. The vocal cords were patent. Lidocaine applied over the vocal cords, and the bronchoscope was advanced further down to the trachea. Thorough examination was done of the trachea seemed to be normal. As we entered, the right mainstem bronchus you could easily see there is significant extrinsic compression on the right lower lobe, and could only see the superior segment of the right lower lobe. The other segments are completely occluded and extrinsically compressed. The right middle lobe medial wall was noted to be extremely abnormal, erythematous, and had a bumpy appearance to the wall. Multiple endobronchial biopsies were done from the medial segment of the right middle lobe, the brushings were also done from abnormalities noted on the mucosa of the right middle lobe. Lavage of the right middle lobe and right lower lobe was done. Brushings from the right middle lobe were also done. The left side was noted to be relatively unremarkable. Procedure was well tolerated, no evidence of any immediate complication. However, throughout the procedure, the patient was not sedated enough, significant coughing during the procedure was noted, and if this is to be done in the future, would strongly recommend a general anesthesia on this patient if this procedure has to be repeated. No evidence of any immediate complications. Blood loss was minimal. MMODL / IJN: [id number] /
[2019-01-16] MEDS: methylPREDNISolone SOD SUCCI 40 MG/ML 1 ML VIAL IV SCH ×2 (05:30→12:16)
[2019-01-16] MEDS: HYDROcodone/APAP 5-325MG 1 EACH TAB PO PRN (05:33)
[2019-01-16 05:36] VITALS: RESP 16
[2019-01-16] MEDS: PANTOPRAZOLE 40 MG TABLET PO SCH (07:55)
[2019-01-16] MEDS: THIAMINE 100 MG TAB PO SCH ×2 (07:55→15:54)
[2019-01-16] MEDS: ATORVASTATIN 10 MG TAB PO SCH (07:55)
[2019-01-16] MEDS: PIPERACILLIN-TAZOBACTAM 3.375 GM in SODIUM CHLORIDE 0.9% 100 ML IVPB SCH ×2 (07:55→15:52)
[2019-01-16] MEDS: HEPARIN SODIUM,PORCINE 5,000 UNIT/ML 1 ML VIAL SQ SCH (07:55)
[2019-01-16] MEDS: IPRATROPIUM-ALBUTEROL 3 ML NEB INHALATION SCH ×3 (07:58→16:20)
[2019-01-16] MEDS: HYDROmorphone 0.5 MG/0.5 ML SYRINGE IVP PRN (08:01)
[2019-01-16 09:40] LABS: Basophils % (A) 0 %; Eosinophils % (A) 0 %; HCT 44.8 % (39.0-53.0); HGB 14.2 gm/dL (13.0-17.5); Lymphocytes # (A) 0.6 k/uL (1.0-4.8); Lymphocytes % (A) 4 %; MCH 30.2 pg (25.0-35.0); MCHC 31.8 g/dL (31.0-37.0); Mean Platelet Volume 7.1; Monocytes # (A) 0.3 k/uL (0-1.0); Monocytes % (A) 2 %; Neutrophils # (A) 13.6 k/uL (1.3-7.7); Neutrophils % (A) 94 %; Platelet Count 233 k/uL (150-450); RBC 4.71 m/uL (4.30-5.90); RDW 13.3 % (11.5-15.5); WBC 14.5 k/uL (3.8-10.6)
--- NOTE | 2019-01-16 09:46 | ECHOF ---
Referral Reason:chf MEASUREMENTS -------- HEIGHT: 167.6 cm WEIGHT: 79.4 kg BP: IVSd: 1.2 cm (0.6 - 1.1) LVIDd: 4.3 cm (3.9 - 5.3) LVPWd: 1.2 cm (0.6 - 1.1) IVSs: 2.1 cm LVIDs: 2.5 cm LVPWs: 1.8 cm LAESV Index (A-L): 20.60 ml/m Ao Diam: 3.5 cm (2.0 - 3.7) AV Cusp: 2.4 cm (1.5 - 2.6) LA Diam: 2.8 cm (2.7 - 3.8) EPSS: 0.8 cm MV E Damien: 1.07 m/s MV DecT: 159 ms MV A Damien: 0.41 m/s MV E/A Ratio: 2.61 RAP: 5.00 mmHg RVSP: 15.30 mmHg MV EF SLOPE: 79.04 mm/s (70 - 150) MV EXCURSION: 1.93 cm (> 18.000) FINDINGS -------- Sinus rhythm. This was a technically good study. The left ventricular size is normal. There is mild concentric left ventricular hypertrophy. Overa ll left ventricular systolic function is normal with, an EF between 55 - 60 %. The right ventricular wall thickness is normal measuring < 5mm. Normal LA size by volume 22+/-6 ml/m2. The right atrial size is normal. Interatrial and interventricular septum intact. The aortic valve is trileaflet and appears structurally normal. There is trace mitral regurgitation. Trace tricuspid regurgitation present. The right ventricular systolic pressure, as measured by Dopp ler, is 15.30mmHg. There is no pulmonic regurgitation present. The aortic root size is normal. Normal inferior vena cava with normal inspiratory collapse consistent with estimated right atrial pre ssure of 5 mmHg. There is no pericardial effusion. CONCLUSIONS -------- 1. Sinus rhythm. 2. This was a technically good study. 3. The left ventricular size is normal. 4. There is mild concentric left ventricular hypertrophy. 5. Overall left ventricular systolic function is normal with, an EF between 55 - 60 %. 6. The right ventricular wall thickness is normal measuring < 5mm. 7. Normal LA size by volume 22+/-6 ml/m2. 8. The right atrial size is normal. 9. Interatrial and interventricular septum intact. 10. The aortic valve is trileaflet and appears structurally normal. 11. There is trace mitral regurgitation. 12. Trace tricuspid regurgitation present. 13. The right ventricular systolic pressure, as measured by Doppler, is 15.30mmHg. 14. There is no pulmonic regurgitation present. 15. The aortic root size is normal. 16. Normal inferior vena cava with normal inspiratory collapse consistent with estimated right atrial pressure of 5 mmHg. 17. There is no pericardial effusion. [employer] RECRUITER: Carey Pham RDCS
[2019-01-16 10:07] LABS: Anion Gap 10 mmol/L; Blood Urea Nitrogen 11 mg/dL (9-20); Calcium 9.7 mg/dL (8.4-10.2); Carbon Dioxide 26 mmol/L (22-30); Chloride 105 mmol/L (98-107); Glucose 196 mg/dL (74-99); Potassium 4.2 mmol/L (3.5-5.1); Sodium 141 mmol/L (137-145)
--- NOTE | 2019-01-16 11:52 | P.PN ---
Subjective Progress Note Date: 01/16/19 Principal diagnosis: Right-sided chest pain, large right hilar mass This is a very pleasant 48-year-old gentleman who follows with Dr. Coto as his primary care physician. He has a history of hyperlipidemia and daily alcohol use. He also has a history of 30 year pack per day smoking history however quit 2 years ago. He does smoke occasional marijuana. Approximate one month ago he started developing increasing shortness of breath cough and congestion with some hemoptysis. He was seen by his PCP treated with antibiotics and steroids and felt he did improve somewhat. He was seen there again yesterday with recurring symptoms. He also had right-sided chest pain anteriorly that went through to his back posteriorly. Chest x-ray showed area of right lower lobe atelectasis. CT angiogram ruled out pulmonary embolism however there is a large 7 x 3.5 cm mass anterior and posterior to the right pulmonary hilum consistent with tumor. There is extensive atelectasis of the right lower lobe. He is seen today in consultation on the regular medical floor. Awake and alert in no acute distress. He is maintaining good O2 saturations in the 90s on room air. Afebrile. Hemodynamically stable. Still with some right-sided chest discomfort. White count 7.4. Hemoglobin 15.1. Creatinine 0.77. Troponin negative. ProBNP 30. He's been initiated on DuoNeb inhalations, Zosyn and Levaquin. He was also placed on the CIWA protocol. Of note, the patient's father has a history of squamous cell carcinoma of the right upper lung diagnosed in July 2017 with brain metastasis status post chemoradiation. He is currently hospitalized with right chest empyema. The patient is seen today in 01/15/2019 in follow-up on the regular medical floor. He is currently awake and alert in no acute distress. His right-sided chest discomfort has subsided. No worsening shortness of breath, cough or congestion. Maintaining O2 saturations in the 90s on room air. He's been afe brile. Hemodynamically stable. Blood culture reveals no growth. White count 9.7. Hemoglobin 14.1. Creatinine 0.65. He remains on Zosyn and Levaquin along with bronchodilators and IV Solu-Medrol. Plan is for bronchoscopy with biopsy today. On 01/16/2019 patient seen in follow-up on medical surgical floor. He is resting in bed, no acute distress, currently on 2 L of oxygen with a pulse ox of 94%, he is afebrile, hemodynamically patient is stable, patient underwent bronchoscopy with biopsy of the right hilar mass yesterday by Dr. Carter, and the biopsy results are pending at this time, bronchial wash cultures are pending, Gram stain showed rare gram-positive cocci, and rare yeast, final culture is pending, patient has been afebrile, no night sweats, no chest pain today, he did have some right-sided chest discomfort last night that was radiating through to his back with coughing, currently completely asymptomatic, lung sounds are diminished at the bases, no rhonchi, no wheezes, patient states he has been up ambulating, he is requesting to go home today, remains on IV antibiotics, currently on a combination of Levaquin and Zosyn, remains on IV steroids, and breathing treatments. Objective - Vital Signs Vital signs: Vital Signs Temp 97.3 F L 01/16/19 05:35 Pulse 102 H 01/16/19 11:40 Resp 16 01/16/19 05:35 BP 112/71 01/16/19 05:35 Pulse Ox 94 L 01/16/19 07:58 Intake & Output 01/15/19 01/16/19 01/16/19 18:59 06:59 18:59 Intake Total 500 500 Balance 500 500 Intake: IV 500 Oral 500 Other: # Voids 1 2 - Exam GENERAL EXAM: Alert, pleasant, 48-year-old white male on 2 L of oxygen with pulse ox of 94% comfortable in no apparent distress. HEAD: Normocephalic/atraumatic. EYES: Normal reaction of pupils, equal size. Conjunctiva pink, sclera white. NOSE: Clear with pink turbinates. THROAT: No erythema or exudates. NECK: No masses, no JVD, no thyroid enlargement, no adenopathy. CHEST: No chest wall deformity. Symmetrical expansion. LUNGS: Equal air entry with no crackles, wheeze, rhonchi or dullness. CVS: Regular rate and rhythm, normal S1 and S2, no gallops, no murmurs, no rubs ABDOMEN: Soft, nontender. No hepatosplenomegaly, normal bowel sounds, no guarding or rigidity. EXTREMITIES: No clubbing, no edema, no cyanosis, 2+ pulses and upper and lower extremities. MUSCULOSKELETAL: Muscle strength and tone normal. SPINE: No scoliosis or deformity SKIN: No rashes CENTRAL NERVOUS SYSTEM: Alert and oriented -3. No focal deficits, tone is normal in all 4 extremities. PSYCHIATRIC: Alert and oriented -3. Appropriate affect. Intact judgment and insight. - Labs CBC & Chem 7: 01/16/19 08:52 01/16/19 08:52 Labs: Abnormal Lab Results - Last 24 Hours (Table) 01/15/19 01/16/19 01/16/19 Range/Units 10:25 08:52 08:52 WBC 14.5 H (3.8-10.6) k/uL Neutrophils # 13.6 H (1.3-7.7) k/uL Lymphocytes # 0.6 L (1.0-4.8) k/uL Chloride 109 H (98-107) mmol/L Creatinine 0.65 L (0.66-1.25) mg/dL Glucose 153 H 196 H (74-99) mg/dL Microbiology - Last 24 Hours (Table) 01/15/19 15:30 Gram Stain - Preliminary Bronchial Washings - Right Bronchial Washings Culture - Preliminary 01/13/19 16:09 Blood Culture - Preliminary Blood No Growth after 48 hours Assessment and Plan Plan: Assessment: #1 Right-sided chest pain radiating through to the back with cough ,congestion, hemoptysis secondary to a large 7 x 3.5 cm right hilar mass encroaching on the right mainstem bronchus and right lower lobe bronchus and extensive atelectasis of the right lower lobe. Bronchoscopy with biopsy on 01/15/2019. #2 History of chronic tobacco dependence. #3 History of marijuana use. #4 History of daily alcohol use. #5 Hyperlipidemia. #6 Family history of squamous cell carcinoma of the right lung with brain metastasis in his father status post chemoradiation 2017, currently admitted with a right lung empyema. Plan: Biopsy results of the right hilar mass are still pending, is cultures are pending, clinically patient is asymptomatic, no complaints of chest pain, no worsening shortness of breath, no cough or congestion. He has been tolerating ambulation, remains on a combination of Levaquin and Zosyn. Afebrile, hemodynamically stable, will await the results of the biopsy and cultures. We'll continue with current medical treatment, and the patient asking if he could possibly be discharged home today, could be a possibility later this afternoon, we'll reevaluate, obtain home oxygen assessment. I performed a history & physical examination of the patient and discussed their management with my nurse practitioner, Tammie Haynes. I reviewed the nurse practitioner's note and agree with the documented findings and plan of care. Lung sounds are positive for diminished breath sounds at the bases. The findings and the impression was discussed with the patient. I attest to the documentation by the nurse practitioner. Time with Patient: Less than 30
[2019-01-16 16:29] VITALS: BP 122/78; PULSE 104; TEMP 98.2
--- NOTE | 2019-01-16 16:47 | P.DS ---
Providers Date of admission: 01/14/19 10:23 Attending physician: Ronaldo Cornelius Consults: 01/13/19 20:37 Consult Physician Routine Consulting Provider: Doug Ortega Consult Reason/Comments: lung ca Do you want consulting provider notified?: Yes Primary care physician: Juan José Reece DO Hospital Course: Patient came in with right-sided chest pain, congestion found to have mass in the right mainstem bronchus which was biopsied patient has extensive atelectasis of the right lower lobe which can lead to pneumonia and patient is high risk for pneumonia because of which have pulmonary segment Augmentin and patient is being discharged on Augmentin. Patient most probably has malignancy patient will be referred to oncology as an outpatient. Oncology evaluated him here as well. Patient was treated for COPD exacerbation patient is being discharged on weaning dose of steroids. PHYSICAL EXAMINATION: GENERAL: The patient is alert and oriented x3, not in any acute distress. Well developed, well nourished. HEENT: Pupils are round and equally reacting to light. EOMI. No scleral icterus. No conjunctival pallor. Normocephalic, atraumatic. No pharyngeal erythema. No thyromegaly. CARDIOVASCULAR: S1 and S2 present. No murmurs, rubs, or gallops. PULMONARY: Chest is clear to auscultation, no wheezing or crackles. ABDOMEN: Soft, nontender, nondistended, normoactive bowel sounds. No palpable organomegaly. MUSCULOSKELETAL: No joint swelling or deformity. EXTREMITIES: No cyanosis, clubbing, or pedal edema. NEUROLOGICAL: Gross neurological examination did not reveal any focal deficits. SKIN: No rashes. For other chronic medical problems hospitalization course please refer to dictation from from yesterday Patient Condition at Discharge: Fair Plan - Discharge Summary New Discharge Prescriptions: New Amoxicillin/Potassium Clav [Augmentin 875-125 Tablet] 1 tab PO Q12HR 10 Days #20 tab predniSONE 10 mg PO DAILY 16 Days #40 tab Metoprolol Tartrate [Lopressor] 25 mg PO BID #60 tablet No Action Simvastatin [Zocor] 20 mg PO DAILY Albuterol Sulfate [Proventil Hfa] 2 puff INHALATION QID Discharge Medication List Albuterol Sulfate [Proventil Hfa] 2 puff INHALATION QID 01/13/19 [History] Simvastatin [Zocor] 20 mg PO DAILY 01/13/19 [History] Amoxicillin/Potassium Clav [Augmentin 875-125 Tablet] 1 tab PO Q12HR 10 Days #20 tab 01/16/19 [Rx] Metoprolol Tartrate [Lopressor] 25 mg PO BID #60 tablet 01/16/19 [Rx] predniSONE 10 mg PO DAILY 16 Days #40 tab 01/16/19 [Rx] Follow up Appointment(s)/Referral(s): Erasmo Patel MD [STAFF PHYSICIAN] - 1 Week Melia Juarez NPC [Nurse Practitioner] - 1 Week Juan José Reece DO [Primary Care Provider] - 3 Days Activity/Diet/Wound Care/Special Instructions: activity as tolerated regular diet Discharge Disposition: HOME SELF-CARE
--- NOTE | 2019-01-22 09:28 | CDI ---
Documentation Clarification Form Date: 01/22/19 From: Marium Romero Phone: If you have a question regarding this query, please contact Nova Pelletier at [phone] between 8am and 5pm. Admit Date: 01/14/2019 10:23:00 AM Patient Name: Orville Lindo Visit Number: [id number] Discharge Date: 01/16/2019 5:31:00 PM ATTENTION: The Clinical Documentation Specialists (CDI) and [facility] Coding Staff appreciate your assistance in clarifying documentation. Please respond to the clarification below the line at the bottom and electronically sign. The CDI & [facility] Coding staff will review the response and follow-up if needed. Please note: Queries are made part of the Legal Health Record. If you have any questions, please contact the author of this message via ITS. Dr. Azalia Martínez Acute post-obstructive pneumonia was documented in H&P and Dr. Cornelius's 01/14 & 01/15 progress notes. Documentation in your discharge summary stated that the patient has extensive atelectasis of the right lower lobe which can lead to pneumonia and patient is high risk for pneumonia. History/Risk Factors: Patient has a mass in the right mainstem bronchus and failure of outpatient treatment for pneumonia. Clinical Indicators: Cough, shortness of breath. Vital signs: T. 98.0, P. 95, R. 18, BP 125/83 WBC/Left shift: 6.8/4.5 X-ray: Right lower lobe patchy atelectasis. Lung/Breathing assessment: Breath sounds diminished in the bases. A few scattered rhonchi and crackles. Antibiotics: IV Levofloxacin, IV Zosyn O2 Room air and then 2L/nasal cannula on 01/15 Breathing Tx: Duoneb In order to capture the severity of condition, please clarify if the condition signifies: Pneumonia ruled out Bacterial Pneumonia, specify causal organism (if known) Gram Negative Pneumonia Gram Positive Other bacteria (please specify) Viral Pneumonia, specify casual organism (if known) Healthcare Acquired Pneumonia/Pneumonia, unspecified Other, please specify Unable to determine my opinion was dictated in the note MTDD
== END 2019-01-16 17:31 | disposition home or self-care (01) | DRG 180 ==
LOC: EC 15:07 → 4MS4W 17:16 → OBSVTOIN 01-14 10:23
PROVIDERS: ADMIT Hospitalist; ATTEND Hospitalist
PROC: 0BD68ZX Extraction of Right Lower Lobe Bronchus, Via Natural or Artificial Opening Endoscopic, Diagnostic (ICD-10-PCS; principal; 2019-01-14)
PROC: 0BDD8ZX Extraction of Right Middle Lung Lobe, Via Natural or Artificial Opening Endoscopic, Diagnostic (ICD-10-PCS; 2019-01-14)
PROC: 0B9F8ZX Drainage of Right Lower Lung Lobe, Via Natural or Artificial Opening Endoscopic, Diagnostic (ICD-10-PCS; 2019-01-14)
PROC: 0B9D8ZX Drainage of Right Middle Lung Lobe, Via Natural or Artificial Opening Endoscopic, Diagnostic (ICD-10-PCS; 2019-01-14)
DX: C34.31 Malignant neoplasm of lower lobe, right bronchus or lung (principal); J18.8 Other pneumonia, unspecified organism; J86.9 Pyothorax without fistula; J98.11 Atelectasis; J44.1 Chronic obstructive pulmonary disease with (acute) exacerbation; R04.2 Hemoptysis; C34.01 Malignant neoplasm of right main bronchus; E78.5 Hyperlipidemia, unspecified; F43.10 Post-traumatic stress disorder, unspecified; I10 Essential (primary) hypertension; M19.90 Unspecified osteoarthritis, unspecified site; R63.4 Abnormal weight loss; R00.0 Tachycardia, unspecified; Z87.891 Personal history of nicotine dependence; Z79.899 Other long term (current) drug therapy; Z88.6 Allergy status to analgesic agent; Z88.5 Allergy status to narcotic agent; Z96.641 Presence of right artificial hip joint; Z87.01 Personal history of pneumonia (recurrent); Z80.1 Family history of malignant neoplasm of trachea, bronchus and lung; Z80.8 Family history of malignant neoplasm of other organs or systems
CPT/HCPCS: 31623; 31624; 31625; 36415; 70450; 71045; 71046; 71275; 74176; 80048; 80053; 83605; 83880; 84484; 85025; 85379; 85610; 85730; 87040; 87070; 87205; 88104; 88108; 88305; 88342; 93005; 93306; 94640; 94760; 96360; 99285

== ENCOUNTER → 2019-01-25 | Outpatient (CLI) | payer OTHER ==
--- NOTE | 2019-01-28 08:06 | PE ---
EXAMINATION TYPE: PET CT fusion skull to thigh DATE OF EXAM: 01/25/2019 COMPARISON: CT abdomen pelvis dated 01/15/[address] [employer] chest dated 5 6 HISTORY: Biopsy-proven right middle lobe lung cancer, initial staging exam. No prior surgical interve ntion, radiation therapy or chemotherapy directed to the lung carcinoma. TECHNIQUE: Following the intravenous administration of 10.351 mCi of F-18 FDG, whole body images are performed from the skull base to the midthigh. Images are reviewed on the computer in the coronal, axial, and sagittal planes. Reconstructed rotating images are created on independent workstation and reviewed on the computer. A localization and attenuation correction CT is performed in conjunction with the PET scan. SCAN: Initial staging FINDINGS: Mediastinal background: 1.17 Abdominal background: 6.82 SKULL BASE AND NECK: No suspicious hypermetabolic activity CHEST, MEDIASTINUM, AND HILAR REGION: The biopsy-proven right middle lobe carcinoma intimately associ ated with the mediastinum and adjacent lymph nodes has a maximum SUV of 14.97. This has a maximum dim ension of 7.1 x 4.7 cm on series 3 image 21 although right hilar adenopathy is presumed to be include d in this measurement. This has mass effect upon the pericardium at this level. Right lower lobe nodu lar atelectasis is hypometabolic with a maximum SUV of 1.96. ABDOMEN AND PELVIS: No suspicious hypermetabolic uptake. OSSEOUS STRUCTURES: No suspicious hypermetabolic uptake. OTHER CT: There is mild polypoid mucosal thickening in the sphenoid sinus. There is leftward nasal se ptal deviation. Scant mucosal thickening of the right maxillary sinus is seen. Meaning paranasal sinu ses and mastoid air cells appear well aerated. Very few coronary calcifications are seen. Heart is up per limits of normal size. There are scattered areas of subsegmental atelectasis in addition to the r ight middle lobe and right basilar postobstructive atelectasis. Peribronchial cuffing is also seen on the right that may be reactive or infectious with endobronchial probable mucus plugging on image 129 in the right lower lobe. Superimposed infection should be considered. The unenhanced liver, spleen, adrenal glands, pancreas, and kidneys are unremarkable in morphology. T here is limitation for small hepatic metastasis without contrast. No dilated large or small bowel. Pr ostate gland is heterogenous. Bladder is obscured. Right hip arthroplasty creates spray artifact part ially obscuring the pelvis. 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 Sacroiliac joint sclerosis on the left is likely degenerative. IMPRESSION: The hypermetabolic approximately 7.1 cm right middle lobe biopsy-proven lung carcinoma is inseparable from right hilar mediastinal adenopathy however no other adenopathy is seen within the c hest, supraclavicular region, abdomen, and or pelvis. No evidence of visceral or osseous metastasis a t this time. Endobronchial mucous plugging/debris and peribronchial cuffing in the right lower lobe c ould be reactive or relate to superimposed pneumonia.
== END | disposition home or self-care (01) ==
LOC: RADPETMAIN 14:22
PROVIDERS: ATTEND Internal Medicine Hematology & Oncology
DX: C34.2 Malignant neoplasm of middle lobe, bronchus or lung (principal); R59.0 Localized enlarged lymph nodes
CPT/HCPCS: 78815; A9552

== ENCOUNTER → 2019-01-29 | Outpatient (CLI) | payer OTHER ==
--- NOTE | 2019-01-29 14:56 | MR ---
EXAMINATION TYPE: MR brain wo/w con DATE OF EXAM: 01/29/2019 COMPARISON: Nuclear medicine PET/CT 01/25/2019, CT brain 01/15/2019 HISTORY: Lung cancer TECHNIQUE: Multiplanar, multisequence images of the brain and brainstem is performed without and with IV contras t, utilizing 8.5 mL intravenous Gadavist . FINDINGS: Diffusion weighted images demonstrate no evidence of a recent infarct or other diffusion ab normality. There is no extra-axial fluid collection. Scattered periventricular and subcortical hype rintensities are present on inversion recovery and T2-weighted sequences, approximately 15 lesions ar e present. The ventricular system and cisternal spaces are normal in size and appearance. The brain volume is age appropriate. There are normal vascular flow voids. Midline structures demonstrate normal morphology. The craniocervical junction appears within normal limits. Post contrast images demonstrate no abnormal enhancement. The dural venous sinuses appear pa tent. The visualized sinuses are remarkable for some inflammatory change in the sphenoid sinus, maxil joseluis sinus and ethmoid air cells, and the globes are intact. IMPRESSION: Nonspecific white matter demyelination. Sinus disease. Metastatic disease is not evident.
== END ==
LOC: RADMRIMAIN 11:50
PROVIDERS: ATTEND Internal Medicine Hematology & Oncology
DX: R90.89 Other abnormal findings on diagnostic imaging of central nervous system (principal)
CPT/HCPCS: 70553; A9585

== ENCOUNTER → 2019-04-17 | Outpatient (CLI) | payer OTHER ==
--- NOTE | 2019-04-17 15:51 | XR ---
EXAMINATION TYPE: XR chest 2V DATE OF EXAM: 04/17/2019 COMPARISON: Chest x-ray 01/15/2019 HISTORY: Lung carcinoma, C 34.2, R 78.00, cough and pain TECHNIQUE: Frontal and lateral views of the chest are obtained. FINDINGS: Bandlike areas of increased attenuation at the right lung base, right middle lobe again no juancho. No evident pneumothorax or pleural effusion. Prominent lung volumes are compatible with underlyi ng COPD. Heart size is stable. Pulmonary vascularity and savita are unchanged, there is prominence of t he right hilum. IMPRESSION: Findings compatible with patient's history of lung carcinoma.
== END | disposition home or self-care (01) ==
LOC: RADXRMAIN 09:59
PROVIDERS: ATTEND Family Medicine
DX: C34.2 Malignant neoplasm of middle lobe, bronchus or lung (principal); E78.00 Pure hypercholesterolemia, unspecified
CPT/HCPCS: 71046

== ENCOUNTER → 2019-05-23 | Outpatient (CLI) | payer OTHER ==
--- NOTE | 2019-05-26 07:01 | PE ---
EXAMINATION TYPE: PET CT fusion skull to thigh DATE OF EXAM: 05/23/2019 COMPARISON: Prior PET/CT January 25, 2019. Prior CT abdomen and pelvis January 27, 2019 HISTORY: Right-sided lung cancer diagnosed January 2019 completed chemotherapy April 29 and radiation treatment May 19 TECHNIQUE: Following the intravenous administration of 10.84 mCi of F-18 FDG, whole body images are performed from the skull base to the midthigh. Images are reviewed on the computer in the coronal, a xial, and sagittal planes. Reconstructed rotating images are created on independent workstation and reviewed on the computer. A noncontrast CT is performed in conjunction with the PET scan. SCAN: Subsequent Scan FINDINGS: SKULL BASE AND NECK: No areas of suspicious hypermetabolic uptake. CHEST, MEDIASTINUM, AND HILAR REGION: Background mild to moderate underlying emphysematous change red emonstrated. Improving right infrahilar mass abutting the mediastinum measuring approximately 3.8 x 2 .5 cm current study image 112 with interval improvement in hypermetabolic uptake, max SUV is 5.42 on current study. Some adjacent right linear scarring and/or atelectasis extending laterally and inferio rly is redemonstrated. No new areas of suspicious hypermetabolic uptake. ABDOMEN AND PELVIS: No suspicious hypermetabolic uptake. OSSEOUS STRUCTURES: No suspicious hypermetabolic uptake. OTHER CT: Persistent leftward nasal deviation. Mild calcified plaque bilateral carotid bulb level. Small degree of bilateral subareolar gynecomastia is redemonstrated. Streak artifact from right hip arthroplasty causes suboptimal evaluation of pelvic structures. 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 Slightly prominent prostate gland bulging on bladder base redemonstrated. IMPRESSION: Overall partial positive treatment response as detailed above. Improving primary neoplasm . No new adenopathy or metastatic disease identified.
== END | disposition home or self-care (01) ==
LOC: RADPETMAIN 14:15
PROVIDERS: ATTEND Thoracic Surgery (Cardiothoracic Vascular Surgery)
DX: J43.9 Emphysema, unspecified (principal); I65.23 Occlusion and stenosis of bilateral carotid arteries; N62 Hypertrophy of breast; N42.89 Other specified disorders of prostate; Z96.641 Presence of right artificial hip joint
CPT/HCPCS: 78815; A9552

== ENCOUNTER → 2019-11-05 | Outpatient (CLI) | payer OTHER ==
[2019-11-05 10:50] LABS: African American GFR (CKD) >90 (>60 ml/min/1.73 sqM); Blood Urea Nitrogen 7 mg/dL (9-20); Non-African American GFR(CKD) >90 (>60 ml/min/1.73 sqM)
--- NOTE | 2019-11-05 15:44 | CT ---
EXAMINATION TYPE: CT ChestAbdPelvis w con DATE OF EXAM: 11/05/2019 INDICATION: Malignant neoplasm of middle lobe, bronchus or lung COMPARISON: PET/CT 05/23/2019 CT DLP: 1569 mGycm CONTRAST: Performed with Oral Contrast and with IV Contrast, patient injected with 100 ml mL of Isovue 300. TECHNIQUE: Axial images at 5 mm thick sections. Reconstructed images in the coronal plane. Delayed images through the kidneys. FINDINGS: CT CHEST: Portion of the thyroid visualized is normal. There is consolidation in the right lower lobe. Some perihilar increased lung markings are present. F indings can be compatible with the patient's reported right lung cancer. There is an enlarged oval density adjacent to the ascending aorta in the superior mediastinum. Series 3 image 27. This has a transverse dimension of 1.4 cm. Suspicious adenopathy should be considered.Sh otty lymphadenopathy is present. The ascending aorta diameter at the level of the main pulmonary artery is 3.2 cm. The main pulmonary artery diameter at the bifurcation is 2.[address] ABDOMEN: Liver: Normal Spleen: Normal Pancreas: Normal Adrenal glands: The adrenal glands are normal. Gallbladder: Normal Kidneys: No masses are evident. No hydronephrosis is present. No cysts are present. Delayed images were obtained through the kidneys, which remain unremarkable. Aorta: Mild Vascular calcification is within the aorta. Inferior vena cava: Normal. CT PELVIS: Beam hardening artifact from right hip prosthesis causes some limitation of the pelvis jane luation. Loops of bowel within the abdomen and pelvis are normal. Fecal debris and/or fluid is within the rec franck. There are loops of bowel which are incompletely distended or lack oral contrast limiting their evaluation. Appendix: Normal as visualized. Urinary bladder: Normal. Genitourinary structures: Prostate is visualized is mild prominence. Osseous structures: No suspicious lytic or sclerotic lesions. IMPRESSIONS: 1. Suspicious consolidation and infiltrate in the right perihilar and right lower lobe can be compati ble with the patient's reported right lung cancer. Findings have worsened from comparison CT. Infecti ous etiology should be considered within the differential. 2. Increasing prominence of a superior mediastinal lymph node.
== END | disposition home or self-care (01) ==
LOC: RADCTMAIN 09:43
PROVIDERS: ATTEND Internal Medicine Hematology & Oncology
DX: C34.2 Malignant neoplasm of middle lobe, bronchus or lung (principal); Z88.8 Allergy status to other drugs, medicaments and biological substances
CPT/HCPCS: 82565; 84520; 71260; 74177; 36415; Q9967

== ENCOUNTER → 2020-01-26 | Outpatient (CLI) | payer OTHER ==
[2020-01-26 12:27] LABS: African American GFR (CKD) >90 (>60 ml/min/1.73 sqM); Blood Urea Nitrogen 11 mg/dL (9-20); Non-African American GFR(CKD) 88 (>60 ml/min/1.73 sqM)
--- NOTE | 2020-01-26 14:17 | CT ---
EXAMINATION TYPE: CT ChestAbdPelvis w con DATE OF EXAM: 01/26/2020 COMPARISON: 11/05/2019 CT and PET/CT dated 05/23/2019. HISTORY: follow up lung cancer CT DLP: 719.4 mGycm. Automated Exposure Control for Dose Reduction was Utilized. CONTRAST: CT scan of the thorax, abdomen and pelvis is performed with IV Contrast, patient injected with 100 mL of Isovue 300. FINDINGS: LUNGS: There is increasing confluence most notably centrally of the right perihilar consolidation. r bronchograms are seen of the posterior medial right lower lobe, right perihilar region and right mi ddle lobe. There is peripheral groundglass opacity. Given the linear component of this consolidation peripherally post radiation/drug induced chemotherapy changes possible however, given the increasing confluent centrally bronchoscopy is recommended and/or PET CT to exclude recurrent neoplasm. Mediasti nal borders are poorly defined with well-defined right atrial margin concerning for mediastinal invas ion. Mild paraseptal emphysematous changes of the right lung apex. New trace right pleural effusion. MEDIASTINUM: When measured in a similar fashion there is increasing size of the superior mediastinal adenopathy to the right of the ascending aorta. When measured in a similar fashion this previously me asured 1.1 cm and now measures 1.4 cm. No pericardial effusion is seen. Mild coronary artery calcifi cations. LIVER/GB: Hepatic parenchyma is diffusely hypoattenuated in comparison to that of the spleen, most co mmonly seen in hepatic steatosis. This finding limits evaluation for hepatic masses. No gross evidenc e of hepatic mass is seen. No intrahepatic biliary ductal dilatation. No cholelithiasis. PANCREAS: No significant ductal dilatation. SPLEEN: No significant abnormality is seen. No splenomegaly. ADRENALS: No nodularity or thickening. KIDNEYS: Kidneys enhance and excrete symmetrically without hydronephrosis. BOWEL: No dilated large or small bowel. LYMPH NODES: No greater than 1cm abdominal or pelvic lymph nodes are appreciated. OSSEOUS STRUCTURES: Old healed posterior right rib fractures are redemonstrated. Right femoral arthro plasty creates extensive spray artifact partially limiting evaluation of the pelvis. There is a punct ate sclerotic focus of the iliac bone that appears unchanged from the prior and the more remote exam of 01/15/2019. Mild multilevel degenerative change of the spine. OTHER: Moderate atherosclerosis of the abdominal aorta and its branches. IMPRESSION: 1. Increasing confluence of the right perihilar consolidation with surrounding groundglass opacity. G iven the increasing consolidative nature and ill-defined margin with the adjacent right atrium and me diastinal border bronchoscopy and/or PET CT are recommended to evaluate for recurrence. 2. Slightly increased size of the suspicious superior mediastinal abnormally enlarged lymph node. 3. No CT evidence of infradiaphragmatic metastasis.
== END | disposition home or self-care (01) ==
LOC: RADCTMAIN 11:39
PROVIDERS: ATTEND Internal Medicine Hematology & Oncology
DX: R59.0 Localized enlarged lymph nodes (principal); C34.2 Malignant neoplasm of middle lobe, bronchus or lung
CPT/HCPCS: 82565; 84520; 71260; 74177; 36415; Q9967

== ENCOUNTER → 2020-02-10 | Outpatient (CLI) | payer OTHER ==
[2020-02-10 14:07] LABS: African American GFR (CKD) >90 (>60 ml/min/1.73 sqM); Blood Urea Nitrogen 9 mg/dL (9-20); Non-African American GFR(CKD) >90 (>60 ml/min/1.73 sqM)
--- NOTE | 2020-02-10 14:41 | CT ---
EXAMINATION TYPE: CT chest wo/w con DATE OF EXAM: 02/10/2020 COMPARISON: 01/26/2020 HISTORY: lung cancer CT DLP: 602.5 mGycm, Automated exposure control for dose reduction was used. CONTRAST: Performed injected with 100 mL of Isovue 300. TECHNIQUE: Axial images were obtained at 5 mm thick sections. Reconstructed images are reviewed on [employer] computer in the coronal plane. FINDINGS: Portion of the thyroid visualized is normal. There is a consolidation at the right infrahilar lung base. This was present previously. There is a 1.7 cm transverse dimension lymph node within the superior mediastinum adjacent to the ao rta. This has enlarged from 1.4 cm. Subcarinal lymph node is enlarged measuring 1.4 cm which is devel oping from prior study. Hilar adenopathy is difficult to evaluate. The ascending aorta diameter at the level of the main pulmonary artery is 3.0 cm. The main pulmonary artery diameter at the bifurcation is 2. cm. Limited CT sections are obtained through the upper abdomen. Abdomen is essentially unremarkable. IMPRESSIONS: 1. Enlarging and developing mediastinal adenopathy. 2. Persistent consolidation at the inferior right lung compatible with the patient's reported cancer.
== END | disposition home or self-care (01) ==
LOC: RADCTMAIN 13:22
PROVIDERS: ATTEND Radiology Radiation Oncology
DX: R59.0 Localized enlarged lymph nodes (principal); C34.2 Malignant neoplasm of middle lobe, bronchus or lung; C77.9 Secondary and unspecified malignant neoplasm of lymph node, unspecified; Z87.891 Personal history of nicotine dependence
CPT/HCPCS: 82565; 84520; 71270; 36415; Q9967

== ENCOUNTER 2020-03-18 21:03 | Observation (INO) | payer OTHER ==
[2020-03-18] MEDS ORDERED: NALOXONE 0.4 MG/ML 1 ML VIAL IV PRN (21:29)
--- NOTE | 2020-03-18 21:44 | ED ---
General Adult HPI - General Source: EMS, RN notes reviewed Mode of arrival: EMS <Georgi Willis - Last Filed: 03/18/20 21:36> <Cr Roman - Last Filed: 03/18/20 21:45> - General Chief complaint: Recheck/Abnormal Lab/Rx Stated complaint: Coughing up Blood Time Seen by Provider: 03/18/20 21:16 - History of Present Illness Initial comments: 49-year-old male with a past medical history of states 3 lung cancer, hyperlipidemia, COPD presents to the emergency department for a chief complaint of hemoptysis. Patient had 2 episodes of blood-tinged sputum today. States he called his primary care provider who recommended he go to the emergency room. Patient was seen at [facility] where he had extensive workup completed. CBC showed hemoglobin stable at 13 with a platelet count of 246. INR 0.99. Patient is not on any blood thinners. Apparently patient is undergoing immunotherapy for his lung cancer which she was diagnosed with a just over a year ago. They were unable to do a resection. Patient also had a computed tomography scan obtained that showed a right infrahilar mass increased in size compared to previous CT from May 2019. There is possible mediastinal invasion. He did have an episode of low blood pressure with a systolic anywhere from 75-95 however states he always has low blood pressure. Patient was given 3 L of normal saline at [facility] and blood pressure on arrival is stable at 121/84. Patient states he feels well at this time. Patient is a full code. (Georgi Willis) - Related Data Home Medications Medication Instructions Recorded Confirmed Albuterol Sulfate [Proventil Hfa] 2 puff INHALATION QID 01/13/19 01/13/19 Simvastatin [Zocor] 20 mg PO DAILY 01/13/19 01/13/19 Previous Rx's Medication Instructions Recorded Amoxicillin/Potassium Clav 1 tab PO Q12HR 10 Days #20 tab 01/16/19 [Augmentin 875-125 Tablet] Metoprolol Tartrate [Lopressor] 25 mg PO BID #60 tablet 01/16/19 predniSONE 10 mg PO DAILY 16 Days #40 tab 01/16/19 Allergies Allergy/AdvReac Type Severity Reaction Status Date / Time acetaminophen Allergy Vomiting Verified 03/18/20 21:10 [From Tylenol-Codeine #3] adhesive tape Allergy Rash/Hives Verified 03/18/20 21:10 codeine Allergy Vomiting Verified 03/18/20 21:10 [From Tylenol-Codeine #3] meperidine [From Demerol] Allergy Vomiting Verified 03/18/20 21:10 Review of Systems ROS Other: All systems not noted in ROS Statement are negative. <Georgi Willis - Last Filed: 03/18/20 21:36> ROS Other: All systems not noted in ROS Statement are negative. <Cr Roman - Last Filed: 03/18/20 21:45> ROS Statement: Those systems with pertinent positive or pertinent negative responses have been documented in the HPI. Past Medical History Past Medical History: Cancer, COPD, Hyperlipidemia, Pneumonia Additional Past Medical History / Comment(s): right hip pain, stage 3 right lung. History of Any Multi-Drug Resistant Organisms: None Reported Past Surgical History: Joint Replacement Additional Past Surgical History / Comment(s): x2 right hip replacement, right hand surgery Smoking Status: Former smoker Past Alcohol Use History: Rare Past Drug Use History: Marijuana - Past Family History Mother Family Medical History: No Reported History Father Family Medical History: Cancer Additional Family Medical History / Comment(s): lung cancer dx 2017 <Georgi Willis - Last Filed: 03/18/20 21:36> General Exam General appearance: alert, in no apparent distress Head exam: Present: atraumatic, normocephalic, normal inspection Eye exam: Present: normal appearance, PERRL, EOMI. Absent: scleral icterus, conjunctival injection, periorbital swelling ENT exam: Present: normal exam, mucous membranes moist Neck exam: Present: normal inspection, full ROM. Absent: tenderness, meningismus, lymphadenopathy Respiratory exam: Present: normal lung sounds bilaterally. Absent: respiratory distress, wheezes, rales, rhonchi, stridor Cardiovascular Exam: Present: regular rate, normal rhythm, normal heart sounds. Absent: systolic murmur, diastolic murmur, rubs, gallop, clicks GI/Abdominal exam: Present: soft, normal bowel sounds. Absent: distended, tenderness, guarding, rebound, rigid <Georgi Willis - Last Filed: 03/18/20 21:36> Course <Cr Roman - Last Filed: 03/18/20 21:45> Vital Signs 03/18/20 21:05 Temperature 98.2 F Pulse Rate 112 H Respiratory 18 Rate Blood Pressure 121/84 O2 Sat by Pulse 99 Oximetry - Reevaluation(s) Reevaluation #1: 03/18/20 21:44 PA supervision: I personally evaluate this patient initially was transferred from [facility] after discussion with Dr. Streeter. She did have a catheter which included a CAT scan showing no evidence of pulmonary was admitted however show evidence of lung cancer that is progressing and apparently involving the mediastinum. After discussion with oncology patient was transferred here for further evaluation. Review of the assessment and plan. (Cr Roman) Medical Decision Making <Georgi Willis - Last Filed: 03/18/20 21:36> - Medical Decision Making [facility] had spoken with Dr. Aquino who recommended patient be kept overnight with pulmonary evaluation. He was transferred to our facility as they do not have oncology coverage. Patient does not have any active bleeding. Blood pressure is stable. At this time Dr. Roman recommends patient goes to medical floor. Case was discussed with from [facility]. Patient admitted with oncology and pulmonology consultations. (Georgi Willis) Disposition Is patient prescribed a controlled substance at d/c from ED?: No Time of Disposition: 21:43 <Georgi Willis - Last Filed: 03/18/20 21:36> <Cr Roman - Last Filed: 03/18/20 21:45> Clinical Impression: Hemoptysis, Blood-tinged sputum Disposition: ADMITTED IP TO THIS HOSP Referrals: Brien Ramsay MD [Primary Care Provider] - 1-2 days
[2020-03-18] MEDS: SODIUM CHLORIDE 0.9% 1,000 ML IV SCH (21:53)
[2020-03-18] MEDS ORDERED: ONDANSETRON 4 MG/2 ML VIAL IVP PRN (22:17)
[2020-03-18] MEDS: HYDROcodone/APAP 5-325MG 1 EACH TAB PO PRN (22:56)
[2020-03-19 06:27] LABS: Basophils % (A) 1 %; Eosinophils # (A) 0.1 k/uL (0-0.7); Eosinophils % (A) 3 %; HCT 38.6 % (39.0-53.0); HGB 11.6 gm/dL (13.0-17.5); Lymphocytes # (A) 0.5 k/uL (1.0-4.8); Lymphocytes % (A) 11 %; MCH 27.7 pg (25.0-35.0); MCV 92.3 fL (80.0-100.0); Monocytes # (A) 0.4 k/uL (0-1.0); Monocytes % (A) 9 %; Neutrophils # (A) 3.1 k/uL (1.3-7.7); Neutrophils % (A) 74 %; Platelet Count 220 k/uL (150-450); RBC 4.18 m/uL (4.30-5.90); RDW 13.4 % (11.5-15.5); WBC 4.3 k/uL (3.8-10.6)
[2020-03-19 06:32] LABS: African American GFR (CKD) >90 (>60 ml/min/1.73 sqM); Anion Gap 5 mmol/L; Blood Urea Nitrogen 8 mg/dL (9-20); Calcium 8.5 mg/dL (8.4-10.2); Carbon Dioxide 24 mmol/L (22-30); Chloride 109 mmol/L (98-107); Glucose 86 mg/dL (74-99); Non-African American GFR(CKD) >90 (>60 ml/min/1.73 sqM); Potassium 3.9 mmol/L (3.5-5.1); Sodium 138 mmol/L (137-145)
[2020-03-19] MEDS: SODIUM CHLORIDE 0.9% 1,000 ML IV SCH (08:10)
[2020-03-19] MEDS ORDERED: ATORVASTATIN 80 MG TAB PO SCH ×2 (09:00→21:00)
[2020-03-19] MEDS ORDERED: PANTOPRAZOLE 40 MG TABLET PO SCH (09:00)
[2020-03-19 10:28] VITALS: BP 114/59; RESP 16; TEMP 97.1
[2020-03-19] MEDS ORDERED: IPRATROPIUM-ALBUTEROL 3 ML NEB INHALATION PRN (11:22)
[2020-03-19] MEDS: HYDROcodone/APAP 5-325MG 1 EACH TAB PO PRN ×2 (11:44→14:58)
[2020-03-19] MEDS ORDERED: METOPROLOL TARTRATE 25 MG TAB PO SCH (15:30)
[2020-03-19] MEDS ORDERED: methylPREDNISolone SOD SUCCI 125 MG/2 ML VIAL IV SCH (16:00)
[2020-03-19] MEDS ORDERED: PIPERACILLIN-TAZOBACTAM 3.375 GM in SODIUM CHLORIDE 0.9% 100 ML IVPB SCH (16:00)
--- NOTE | 2020-03-19 16:06 | P.DS ---
Providers Date of admission: 03/18/20 21:27 Attending physician: Ronaldo Cornelius Consults: 03/18/20 21:33 Consult Physician Routine Consulting Provider: Brian Aquino Consult Reason/Comments: Stage III Lung Ca Do you want consulting provider notified?: Already Contacted 03/18/20 21:34 Consult Physician Routine Consulting Provider: Cr Hernandez Consult Reason/Comments: hemoptysis, blood tinged sputum Do you want consulting provider notified?: Yes Primary care physician: [facility] Course: Please refer to from [facility] for further details Plan - Discharge Summary New Discharge Prescriptions: New Amoxicillin/Potassium Clav [Augmentin 875-125 Tablet] 1 tab PO Q12HR 5 Days #10 tab Metoprolol Tartrate [Lopressor] 25 mg PO BID #60 tablet predniSONE 10 mg PO DAILY #20 tab Continue Fish Oil/Dha/Epa [Fish Oil 1,200 mg Fish Oil] 1 cap PO DAILY Dronabinol 2.5 mg PO TID@0700,1300,1900 Cyclobenzaprine [Flexeril] 10 mg PO TID Albuterol Sulfate [Albuterol Sulfate Hfa] 2 puff PO RT-BID Rosuvastatin Calcium [Crestor] 40 mg PO DAILY Pantoprazole Sodium [Protonix] 40 mg PO DAILY Discharge Medication List Albuterol Sulfate [Albuterol Sulfate Hfa] 2 puff PO RT-BID 03/18/20 [History] Cyclobenzaprine [Flexeril] 10 mg PO TID 03/18/20 [History] Dronabinol 2.5 mg PO TID@0700,1300,1900 03/18/20 [History] Fish Oil/Dha/Epa [Fish Oil 1,200 mg Fish Oil] 1 cap PO DAILY 03/18/20 [History] Pantoprazole Sodium [Protonix] 40 mg PO DAILY 03/18/20 [History] Rosuvastatin Calcium [Crestor] 40 mg PO DAILY 03/18/20 [History] Amoxicillin/Potassium Clav [Augmentin 875-125 Tablet] 1 tab PO Q12HR 5 Days #10 tab 03/19/20 [Rx] Metoprolol Tartrate [Lopressor] 25 mg PO BID #60 tablet 03/19/20 [Rx] predniSONE 10 mg PO DAILY #20 tab 03/19/20 [Rx] Follow up Appointment(s)/Referral(s): Brien Ramsay MD [Primary Care Provider] - 3 Days (office was closed. Please call to set up appt. time and date.) Discharge Disposition: HOME SELF-CARE
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
[2020-03-19] MEDS: IPRATROPIUM-ALBUTEROL 3 ML NEB INHALATION SCH ×2 (16:13→16:14)
[2020-03-19 16:25] VITALS: PULSE 74
--- NOTE | 2020-03-19 16:49 | CONS ---
CONSULTATION PULMONARY/CRITICAL CARE CONSULTATION: DATE OF SERVICE: 03/19/2020 This is a 49-year-old male we are asked to see. The patient has a history of advanced lung cancer. I believe he has stage III lung cancer. He has gone through chemotherapy and radiation therapy with Medical Oncology and Radiation therapy, and more recently apparently for the last couple months and had been having immune therapy. He also suffers from hyperlipidemia and COPD. More recently, the patient has had a CT scan of the chest in February showing progression of his disease in his right chest. Anyway, the patient is evaluated initially in the emergency room at [facility]. He was seen there by Dr. Streeter. The patient apparently was coughing up blood and for that reason, was sent over to the emergency room here where he saw one of the nurse practitioners or physician's assistants. Anyway, he was relatively stable over there. His biggest issue was coughing up blood. His hemoglobin was stable at 13. His platelet count was 246,000. His INR was normal as well. He was not on any blood thinners. But because of the coughing up of blood, the patient was sent to the emergency room here where he was admitted to the hospital. Currently, he is resting comfortably. He has had no further episodes of hemoptysis. We saw him today in the hospital. He does have some pain in his right chest area. The patient apparently previously had a thoracotomy with the idea of resection of his lung cancer, but apparently was discovered that it was too far advanced and that was not an option. He apparently had that procedure done by Dr. Brown at [facility]. Because he was not a surgical candidate, he underwent a chemotherapy and radiation therapy as mentioned, and now for the last 3 months has apparently been on immune therapy. He has been stable since he has been here. He came in last night. Again, he was evaluated by one of the PAs in the emergency room here at this hospital. Other than the pain in his right chest and some mild shortness of breath and coughing up some mucus without blood, the patient seems relatively stable. I did get a chance to look at his CT scan from February, which shows progressive disease. He was scheduled for a PET scan of the chest today, but a course that cannot be done because he is an inpatient. MEDICATIONS: Reviewed. He is on albuterol and Zocor as well as Augmentin, metoprolol and prednisone. ALLERGIES: Include TYLENOL WITH CODEINE, ADHESIVE TAPE, and MEPERIDINE. MEDICAL HISTORY: Lung cancer, COPD, hyperlipidemia, and pneumonia. He also has a history of right hip pain. SURGICAL HISTORY: Includes right hip replacement x2, right hand surgery, a previous thoracotomy without resection. SOCIAL HISTORY: Positive for previous tobacco use. He has not smoked in a number of years. He drinks alcohol rarely but he does smoke marijuana from time to time. FAMILY HISTORY: Positive for mother who is healthy and a father with history of lung cancer, diagnosed in 2017. REVIEW OF SYSTEMS: CONSTITUTIONAL: Negative. NEUROLOGIC: Negative. HEENT: Negative. CARDIOVASCULAR: Right-sided chest discomfort about where the previous thoracotomy was performed. Also, hemoptysis. Mild shortness of breath all in the pulmonary system. GI: Negative. : Negative. RHEUMATOLOGIC: Negative. IMMUNOLOGIC: Negative. ENDOCRINOLOGIC: Negative. DERMATOLOGIC: Negative. Current vital signs are reviewed, temperature is 97.1, heart rate 101, respiratory rate 16, blood pressure 114/59 mean 77, saturations are 97% on room air. He appears in no acute distress. No audible wheezing, use of accessory muscles. No conversational dyspnea. HEENT: Examination is grossly unremarkable. Not wearing any supplemental oxygen. NECK: Supple, full range of motion. No adenopathy or thyromegaly. Neck veins are flat. CARDIOVASCULAR: Examination reveals regular rhythm and rate. Heart rate right around 100 beats per minute. S1, S2 normal. LUNGS: Reveal diminished breath sounds on the right. Some coarse rhonchi on the right as well. Left lung is relatively clear. No wheezes. ABDOMEN: Soft, bowel sounds are heard. EXTREMITIES: Intact. No edema. SKIN: Without rash. NEUROLOGIC: Examination is brief but nonfocal. LABS: Reviewed. White count 4.3, hemoglobin 11.6, hematocrit 38.6, platelet count 220,000. Sodium, potassium, normal. Chloride is 109, CO2 is 24, anion gap is 5. BUN and creatinine were 8 and 0.61, calcium 8.5. A chest CT done on February 10, 2020 shows enlarging and developing mediastinal adenopathy with persistent consolidation in the inferior right lung compatible with the patient's known history of cancer. His most recent PET scan was done in May 2019. The path report from January of 2019 shows the patient to have moderately differentiated invasive squamous cell carcinoma. His scans from the outside hospital have not been uploaded as yet. Microbiology is pending or negative. Medications are reviewed. We have added Symbicort, DuoNeb, Solu-Medrol, and Zosyn. ASSESSMENT: 1. Hemoptysis, with possible underlying postobstructive pneumonia, secondary to progressive non-small cell lung cancer. 2. 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 3. History of previous tobacco use. 4. Underlying COPD. 5. Hyperlipidemia. 6. Prior history of pneumonia. PLAN: The patient is given DuoNeb q.i.d. and p.r.n. We also started the patient on Symbicort 160/4.5. In addition, will give the patient Solu-Medrol 60 mg IV push q.8 hours. Finally, we add Zosyn 3.375 g. This is given every 8 hours. Additional recommendations and suggestions forthcoming. Will attempt to upload the CAT scan that was done at this hospital. Additional recommendations and suggestions are forthcoming. Prognosis is guarded. The patient may benefit from bronchoscopy early next week. MMODL / IJN: [id number] / MTDD
[2020-03-19] MEDS ORDERED: SYMBICORT 160-4.5 MCG INHALER INHALATION SCH (20:00)
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
== END 2020-03-19 17:03 | disposition home or self-care (01) ==
LOC: EC 21:03 → 5NMEDONC 21:27
PROVIDERS: ADMIT Hospitalist; ATTEND Hospitalist
DX: J44.1 Chronic obstructive pulmonary disease with (acute) exacerbation (principal); C34.01 Malignant neoplasm of right main bronchus; E78.5 Hyperlipidemia, unspecified; R00.0 Tachycardia, unspecified; I95.9 Hypotension, unspecified; J98.11 Atelectasis; F43.10 Post-traumatic stress disorder, unspecified; E66.9 Obesity, unspecified; Z68.27 Body mass index [BMI] 27.0-27.9, adult; Z03.818 Encounter for observation for suspected exposure to other biological agents ruled out; Z79.899 Other long term (current) drug therapy; Z88.5 Allergy status to narcotic agent; Z91.09 Other allergy status, other than to drugs and biological substances; Z87.01 Personal history of pneumonia (recurrent); Z96.641 Presence of right artificial hip joint; Z98.890 Other specified postprocedural states; Z87.891 Personal history of nicotine dependence; Z92.21 Personal history of antineoplastic chemotherapy; Z92.3 Personal history of irradiation; Z87.81 Personal history of (healed) traumatic fracture; Z80.1 Family history of malignant neoplasm of trachea, bronchus and lung
CPT/HCPCS: 96374; 99284; 94640; 80048; 85025; G0378 ×2; U0003; J2543; J2930

== ENCOUNTER → 2020-03-27 | Outpatient (CLI) | payer OTHER ==
--- NOTE | 2020-03-31 09:01 | PE ---
EXAMINATION TYPE: PET CT fusion skull to thigh DATE OF EXAM: 03/30/2020 COMPARISON: CT chest abdomen and pelvis January 26, 2020 and older CTs. Prior PET/CT May 23, 2019 a nd older study May 28, 2019. HISTORY: Lung cancer progress study. Originally diagnosed right lung January 2019 completed radiation john atment May 2019, currently on immunotherapy. TECHNIQUE: Following the intravenous administration of 13.55 mCi of F-18 FDG, whole body images are performed from the skull base to the midthigh. Images are reviewed on the computer in the coronal, a xial, and sagittal planes. Reconstructed rotating images are created on independent workstation and reviewed on the computer. A noncontrast CT is performed in conjunction with the PET scan. SCAN: Subsequent Scan FINDINGS: SKULL BASE AND NECK: No new areas of abnormal hypermetabolic uptake. CHEST, MEDIASTINUM, AND HILAR REGION: Background mild to moderate underlying emphysematous change red emonstrated. Worsening right infrahilar mass abutting the mediastinum measuring approximately 6.5 x 4 .8 cm current study axial image 100 with worsening hypermetabolic uptake, max SUV is 14.94 on current study axial image 103. Worsening adjacent right long obstructive atelectasis with new tiny right ple ural fluid collection. There is new abnormal hypermetabolic right mediastinal mass or lymph node measuring 2.8 x 1.9 cm axia l image 90 with max SUV of 13.13. ABDOMEN AND PELVIS: No new areas of suspicious hypermetabolic uptake. No adrenal masses. OSSEOUS STRUCTURES: No new areas of suspicious hypermetabolic uptake. Mild uptake in a right hip pros thesis redemonstrated could reflect inflammatory etiology. OTHER CT: Persistent leftward nasal deviation. Mild calcified plaque bilateral carotid bulb level. Coronary calcification again seen which is noted marked underlying coronary artery disease. Streak artifact from right hip arthroplasty causes suboptimal evaluation of pelvic structures. 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 Slightly prominent prostate gland bulging on bladder base is stable. IMPRESSION: Interval neoplastic progression in the thorax as detailed above.
== END | disposition home or self-care (01) ==
LOC: RADPETMAIN 10:20
PROVIDERS: ATTEND Internal Medicine Hematology & Oncology
DX: C76.1 Malignant neoplasm of thorax (principal); C34.81 Malignant neoplasm of overlapping sites of right bronchus and lung
CPT/HCPCS: 78815; A9552

== ENCOUNTER → 2020-05-28 | Outpatient (CLI) | payer OTHER ==
[2020-05-28 12:10] LABS: African American GFR (CKD) >90 (>60 ml/min/1.73 sqM); Blood Urea Nitrogen 11 mg/dL (9-20); Non-African American GFR(CKD) >90 (>60 ml/min/1.73 sqM)
--- NOTE | 2020-05-28 18:44 | CT ---
EXAMINATION TYPE: CT ChestAbdPelvis w con DATE OF EXAM: 05/28/2020 COMPARISON: PET/CT 03/27/2020 HISTORY: Lung CA CT DLP: 1526 mGycm Automated exposure control for dose reduction was used. CONTRAST: CT scan of the chest, abdomen and pelvis is performed with Oral Contrast and with IV Contrast, patien t injected with 100 mL of Isovue 300. FINDINGS: LUNGS: Right infrahilar mass is difficult to discretely measure given extensive postobstructive atele ctasis, and likely measures approximately 4.5 x 5.4 cm, and appears overall similar to 03/27/[address] comparison. Trace right pleural effusion. No pneumothorax. The tracheobronchial tree is patent. MEDIASTINUM/SOFT TISSUES: Right mediastinal prevascular lymph node measures up to 1.2 x 2.2 cm (3:27) , mildly decreased in size versus 03/27/2020 when it measured 1.9 x 2.8 cm. No axillary or mediastinal lymphadenopathy greater than 1 cm. Cardiac size is normal. No pericardial effusion. No thoracic aort ic aneurysm. LIVER: Normal. BILIARY SYSTEM: Normal. PANCREAS: Normal. SPLEEN: Normal. ADRENALS: Normal. KIDNEYS: Normal. BOWEL: No obstruction or thickening. PERITONEUM: No pneumoperitoneum. No free fluid. LYMPH NODES: No lymphadenopathy. PELVIS: Obscured due to right hardware streak artifact. VASCULATURE: No abdominal aortic aneurysm. MUSCULOSKELETAL: No aggressive osseous destructive lesions. IMPRESSION: 1. Right infrahilar mass is difficult to discretely measure given extensive atelectasis, and is much better delineated on PET CT comparison. The mass and atelectasis appears similar to 03/27/2020 compar jessica. 2. Decreased size of right mediastinal enlarged lymph node versus 03/27/[address] 3. No evidence of metastatic lung cancer within the abdomen.
== END | disposition home or self-care (01) ==
LOC: RADCTMAIN 11:33
PROVIDERS: ATTEND Internal Medicine Hematology & Oncology
DX: J98.11 Atelectasis (principal); R59.0 Localized enlarged lymph nodes; C34.2 Malignant neoplasm of middle lobe, bronchus or lung; Z88.8 Allergy status to other drugs, medicaments and biological substances; Z91.048 Other nonmedicinal substance allergy status
CPT/HCPCS: 82565; 84520; 71260; 74177; 36415; Q9967